=== PATIENT | female | born 1940 | race Caucasian/White ===

== ENCOUNTER 2017-06-11 07:06 | Day surgery (SDC) | payer MEDICARE, BC ==
[~2017-06-11 07:06] MED LIST: Lactated Ringers 1,000 ML IV SCH; Lidocaine 1% 4 ML ONE; Lidocaine 1%/Sod Bicarbonate in NS 8.4% 1 ML Syringe PRN; Propofol 200 MG/20 ML SDV ONE; Sodium Chloride 0.9% 10 ML Syringe FLUSH PRN
--- NOTE | 2017-06-11 07:55 | PCM.PREANE ---
Preanesthetic Assessment - Anesthesia/Transfusion/Family Hx Anesthesia History: Prior Anesthesia Without Reaction Family History of Anesthesia Reaction: No Transfusion History: No Prior Transfusion(s) - Review of Systems General: Weakness Pulmonary: No Symptoms Cardiovascular: No Symptoms Gastrointestinal: Difficulty Swallowing, Other (Burning in back of throat/mouth in the morning.) Neurological: No Symptoms Other: Reports: Thyroid Problems, Sinus Problem (Post nasal drip), Anxiety - Physical Assessment NPO Status Date: 06/10/17 NPO Status Time: 21:00 Pulse: 71 O2 Sat by Pulse Oximetry: 94 Respiratory Rate: 16 Blood Pressure: 143/79 Temperature: 36.9 C Height: 1.7 m Weight: 84.368 kg ASA Class: 2 Mental Status: Alert & Oriented x3 Airway Class: Mallampati = 2 Dentition: Reports: Normal Dentition Thyro-Mental Finger Breadths: 3 Mouth Opening Finger Breadths: 3 ROM/Head Extension: Full Lungs: Clear to Auscultation, Normal Respiratory Effort Cardiovascular: Regular Rate, Regular Rhythm - Allergies Allergies/Adverse Reactions: Allergies Allergy/AdvReac Type Severity Reaction Status Date / Time amoxicillin [From Amoxil] Allergy Cannot Verified 06/10/17 16:41 Remember atorvastatin [From Lipitor] Allergy Cannot Verified 06/10/17 16:41 Remember bacitracin Allergy Cannot Verified 06/10/17 16:41 [From Neosporin Remember ([id number])] chlorhexidine Allergy Cannot Verified 06/10/17 16:41 Remember codeine Allergy Itching Verified 06/10/17 16:41 hydralazine Allergy Cannot Verified 06/10/17 16:41 Remember hydrocodone Allergy Cannot Verified 06/10/17 16:41 Remember neomycin Allergy Cannot Verified 06/10/17 16:41 [From Neosporin Remember ([id number])] Penicillins Allergy Itching Verified 06/10/17 16:41 polymyxin B Allergy Cannot Verified 06/10/17 16:41 [From Neosporin Remember ([id number])] rosuvastatin [From Crestor] Allergy Cannot Verified 06/10/17 16:41 Remember Tetracyclines Allergy Cannot Verified 06/10/17 16:41 Remember tramadol Allergy Itching Verified 06/10/17 16:41 zolpidem [From Ambien] Allergy Cannot Verified 06/10/17 16:41 Remember erythromycin base AdvReac Hypertensio Verified 06/10/17 16:41 [Erythromycin Base] n - Acknowledgements Anesthesia Type Planned: MAC Pt an Appropriate Candidate for the Planned Anesthesia: Yes Alternatives and Risks of Anesthesia Discussed w Pt/Guardian: Yes Pt/Guardian Understands and Agrees with Anesthesia Plan: Yes PreAnesthesia Questionnaire - Past Health History Medical/Surgical History: Denies Medical/Surgical History HEENT History: Reports: Allergic Rhinitis, Cataract, Impaired Vision, Sinusitis , Other (See Below) Other HEENT History: burning mouth syndrome, wears glasses Cardiovascular History: Reports: Other (See Below) Other Cardiovascular History: bronchitis Respiratory History: Reports: Bronchitis, Recurrent Gastrointestinal History: Reports: GERD, Irritable Bowel Syndrome 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 Musculoskeletal History: Reports: Arthritis, Other (See Below) Other Musculoskeletal History: muscle pain, weakness, knee pain Neurological History: Reports: None Psychiatric History: Reports: Other (See Below) Other Psychiatric History: anxiety, insomnia Endocrine/Metabolic History: Reports: Hypothyroidism, Vitamin D Deficiency Hematologic History: Reports: Anemia, Other (See Below) Other Hematologic History: bleeding disorder, hypercalcemia Immunologic History: Reports: None Oncologic (Cancer) History: Reports: None Dermatologic History: Reports: Other (See Below) Other Dermatologic History: open wound of lower extremity, seborrheic keratosis , onchomycosis of toenail, skin lesions, skin tag - Past Surgical History Head Surgeries/Procedures: Reports: None HEENT Surgical History: Reports: Cataract Surgery, Tonsillectomy Respiratory Surgical History: Reports: None GI Surgical History: Reports: Appendectomy, Colonoscopy Female Surgical History: Reports: Breast Biopsy, Hysterectomy Male Surgical History: Reports: None Endocrine Surgical History: Reports: None Neurological Surgical History: Reports: None Musculoskeletal Surgical History: Reports: Other (See Below) Other Musculoskeletal Surgeries/Procedures:: foot surgery Oncologic Surgical History: Reports: None - SUBSTANCE USE Smoking Status *Q: Never Smoker Second Hand Smoke Exposure: No Recreational Drug Use History: No - HOME MEDS Home Medications: Home Meds Hydrochlorothiazide 12.5 mg PO ASDIRECTED PRN 10/10/15 [History] Levothyroxine 75 mcg PO DAILY 10/10/15 [History] Ascorbic Acid [Vitamin C] 1,000 mg PO DAILY 06/10/17 [History] Aspirin 81 mg PO DAILY 06/10/17 [History] Cholecalciferol (Vitamin D3) [Vitamin D3] 5,000 unit PO DAILY 06/10/17 [History] Clotrimazole [Mycelex] 10 mg PO 5XDAY 06/10/17 [History] Fish Oil/[place]-3 Fatty Acids [Fish Oil 1,000 MG] 1 gm PO DAILY 06/10/17 [History ] Loratadine/Pseudoephedrine [Claritin-D 24 Hour Tablet] 1 tab PO DAILY PRN [History] Lutein 20 mg PO DAILY 06/10/17 [History] Pantoprazole Sodium [Protonix] 40 mg PO DAILY 06/10/17 [History] Ubidecarenone [Coq-10] 100 mg PO DAILY 06/10/17 [History] Vitamin B Complex 1 cap PO DAILY 06/10/17 [History] - CURRENT (IN HOUSE) MEDS Current Meds: Current Medications Lactated Ringer's (Ringers, Lactated) 1,000 mls @ 125 mls/hr IV ASDIRECTED WENDI Stop: 06/11/17 23:00 Lidocaine/Sodium Bicarbonate (Buffered Lidocaine 1% In Ns 8.4%) 0.25 ml .XX ONETIME PRN PRN Reason: Prior to IV Start Stop: 06/11/17 18:00 Sodium Chloride (Saline Flush) 10 ml FLUSH ASDIRECTED PRN PRN Reason: Keep Vein Open Stop: 06/11/17 18:00 Discontinued Medications Lidocaine HCl (Xylocaine-Mpf 1%) Confirm Administered Dose 4 mls @ as directed .ROUTE .STK-MED ONE Stop: 06/11/17 07:00 Propofol (Diprivan 20 Ml) Confirm Administered Dose 200 mg .ROUTE .STK-MED ONE Stop: 06/11/17 07:00
--- NOTE | 2017-06-11 08:48 | PCM48HPAN ---
Post Anesthesia Note - EVALUATION WITHIN 48HRS OF ANESTHETIC Vital Signs in Normal Range: Yes Patient Participated in Evaluation: Yes Respiratory Function Stable: Yes Airway Patent: Yes Cardiovascular Function Stable: Yes Hydration Status Stable: Yes Pain Control Satisfactory: Yes Nausea and Vomiting Control Satisfactory: Yes Mental Status Recovered: Yes - COMMENTS/OBSERVATIONS Free Text/Narrative:: pt awake, VSS, no c/o
--- NOTE | 2017-06-11 08:50 | PCM.OPNOTE ---
- General Post-Op/Procedure Note Date of Surgery/Procedure: 06/11/17 Operative Procedure(s): Esophagogastroduodenoscopy with proximal and distal esophageal biopsies along with antral biopsies Findings: Mild antritis otherwise unremarkable examination. No esophageal strictures webs or rings were seen. Pre Op Diagnosis: Chronic sore throat with occasional dysphagia Post-Op Diagnosis: Mild antritis Anesthesia Technique: MAC, Moderate Sedation Primary Surgeon: Maurice Weber Pathology: 1. Proximal and distal esophageal biopsies 2. Mild antritis Complications: None Condition: Good Free Text/Narrative:: After adequate IV sedation and analgesia was obtained with monitoring the patient was placed on her left side. Through a bite block a lubricated upper endoscope was inserted into the esophagus and advanced under direct vision to the stomach. Additional air was given here. The scope was advanced towards the antrum where there were mild focal areas of erythema with no erosions or ulcerations. The scope was introduced into the duodenum and the first part was endoscopically normal. There were no ulcers or inflammation in this area. I took 2 biopsies of the antral areas of erythema for histologic review. The retroflexed view revealed no hiatal hernias. The fundus and cardiac regions had some minor scope trauma but were otherwise unremarkable. The rugal folds were normal. The gastric motility was grossly normal. I then withdrew the scope to the GE junction which was unremarkable. 2 random biopsies were taken of this area. There were no acute or chronic inflammatory changes seen here. The body of the esophagus was unremarkable. I took 2 biopsies within the proximal third of the esophagus given her history of dysphagia. The scope was then withdrawn to the hypopharyngeal area. The epiglottis was normal. The vocal cords were normal. Photographs were taken for the patient and for the record.
[2017-06-11 10:20] VITALS: BP 124/76
== END 2017-06-11 09:27 | disposition home or self-care (01) ==
LOC: JD.SDS 07:06
PROVIDERS: ATTEND Surgery
DX: K29.50 Unspecified chronic gastritis without bleeding (principal); K21.0 Gastro-esophageal reflux disease with esophagitis; E03.9 Hypothyroidism, unspecified; F41.9 Anxiety disorder, unspecified; E78.2 Mixed hyperlipidemia; E83.52 Hypercalcemia; Z88.0 Allergy status to penicillin; Z88.1 Allergy status to other antibiotic agents; Z88.8 Allergy status to other drugs, medicaments and biological substances; Z79.82 Long term (current) use of aspirin; Z79.899 Other long term (current) drug therapy; Z91.09 Other allergy status, other than to drugs and biological substances; Z90.49 Acquired absence of other specified parts of digestive tract; Z98.890 Other specified postprocedural states; Z90.710 Acquired absence of both cervix and uterus; Z72.0 Tobacco use
CPT/HCPCS: 43239; J7120; 00740; 88305; J2704

== ENCOUNTER 2020-02-21 06:56 | Inpatient (IN) | payer MEDICARE, BC ==
[~2020-02-21 06:56] MED LIST changes: +Cyclobenzaprine 10 MG Tab PO PRN; +Dexamethasone 4 MG/ML 5 ML MDV ONE; +EPINEPHrine 1 MG/ML SDV ONE; +Ketorolac 15 MG/ML SDV ONE; +Lidocaine 1%/Sod Bicarbonate in NS 8.4% 1 ML Syringe IDERM PRN; -Lidocaine 1%/Sod Bicarbonate in NS 8.4% 1 ML Syringe PRN; +Midazolam 1 MG/ML 2 ML SDV ONE; +Ondansetron 4 MG/2 ML SDV ONE; +Ropivacaine 0.5% 5 MG/ML 30 ML SDV ONE; +ceFAZolin 1 GM Vial ONE; +fentaNYL 100 MCG/2 ML SDV ONE
[2020-02-21] MEDS ORDERED: Ondansetron 4 MG/2 ML SDV IVPUSH PRN ×2 (06:57→08:35)
[2020-02-21] MEDS ORDERED: Bisacodyl 5 MG Tab PO PRN (06:57)
[2020-02-21] MEDS ORDERED: Naloxone 0.4 MG/ML SDV IVPUSH PRN (06:57)
[2020-02-21] MEDS ORDERED: HYDROmorphone 0.5 MG/0.5 ML Syringe IVPUSH PRN (06:57)
[2020-02-21] MEDS ORDERED: Magnesium Hydroxide 400 MG/5 ML Susp 30 ML Cup PO PRN (06:57)
[2020-02-21] MEDS ORDERED: Sennosides 8.6 MG Tab PO PRN (06:57)
[2020-02-21] MEDS ORDERED: ceFAZolin 1 GM Vial ONE (07:07)
[2020-02-21] MEDS ORDERED: Bupivacaine 0.25% 10 ML SDV ONE (07:07)
[2020-02-21] MEDS ORDERED: Iodine/Sodium Iodide 2% Tincture 30 ML Bottle ONE (07:07)
[2020-02-21] MEDS ORDERED: Vancomycin 1 GM SDV ONE (07:07)
[2020-02-21] MEDS ORDERED: Scopolamine 1.5 MG Transdermal Patch TOP ONE (07:33)
[2020-02-21] MEDS ORDERED: Morphine Sulfate 8 MG, EPINEPHrine 0.3 MG, Cefuroxime 750 MG, Ketorolac 30 MG, Sodium C... PRN ×5 (08:00)
--- NOTE | 2020-02-21 08:31 | PCM.PREANE ---
Preanesthetic Assessment - Procedure Proposed Procedure: Left Total Knee Arthroplasty - Anesthesia/Transfusion/Family Hx Anesthesia History: Prior Anesthesia Reaction Type of Anesthesia Reaction: Excessive Nausea/Vomiting Family History of Anesthesia Reaction: No Transfusion History: No Prior Transfusion(s) - Review of Systems General: No Symptoms Pulmonary: No Symptoms Cardiovascular: No Symptoms (Recent heart cath mild CAD, 30% lesion noted. Started BetaBlocker per cardiology, cleared for surgery. Edema to legs 2 + stable, chronic. ) Gastrointestinal: No Symptoms, Difficulty Swallowing (Due to thyroid goiter. Monitoring. EGD recently was good. ) Neurological: No Symptoms Other: Reports: Anxiety (Anxious today. Hypertension noted at 162/93 normal BP is 120's systolic. Anxiolytic requested. ) - Physical Assessment NPO Status Date: 02/20/20 NPO Status Time: 23:45 Vital Signs: Last Vital Signs Temp 36.2 C 02/21/20 07:00 Pulse 78 02/21/20 07:00 Resp 18 02/21/20 07:00 BP 162/93 H 02/21/20 07:00 Pulse Ox 97 02/21/20 07:00 Height: 1.7 m Weight: 86.183 kg ASA Class: 3 Mental Status: Alert & Oriented x3 Airway Class: Mallampati = 2 Dentition: Reports: Normal Dentition Thyro-Mental Finger Breadths: 2 Mouth Opening Finger Breadths: 3 ROM/Head Extension: Full Lungs: Clear to Auscultation, Normal Respiratory Effort Cardiovascular: Regular Rate, Regular Rhythm - Lab Values: Laboratory Last Values COVID-19 PCR Not detected (NOT DETECT) 02/17/20 08:30 - Allergies Allergies/Adverse Reactions: Allergies Allergy/AdvReac Type Severity Reaction Status Date / Time amoxicillin [From Amoxil] Allergy Cannot Verified 02/21/20 07:12 Remember atorvastatin [From Lipitor] Allergy Cannot Verified 02/21/20 07:12 Remember bacitracin Allergy Cannot Verified 02/21/20 07:12 [From Neosporin Remember ([id number])] chlorhexidine Allergy Cannot Verified 02/21/20 07:12 Remember codeine Allergy Itching Verified 02/21/20 07:12 hydralazine Allergy Cannot Verified 02/21/20 07:12 Remember hydrocodone Allergy Cannot Verified 02/21/20 07:12 Remember neomycin Allergy Cannot Verified 02/21/20 07:12 [From Neosporin Remember ([id number])] Penicillins Allergy Itching Verified 02/21/20 07:12 polymyxin B Allergy Cannot Verified 02/21/20 07:12 [From Neosporin Remember ([id number])] rosuvastatin [From Crestor] Allergy Cannot Verified 02/21/20 07:12 Remember Tetracyclines Allergy Cannot Verified 02/21/20 07:12 Remember tramadol Allergy Itching Verified 02/21/20 07:12 zolpidem [From Ambien] Allergy Cannot Verified 02/21/20 07:12 Remember erythromycin base AdvReac Hypertensio Verified 02/21/20 07:12 [Erythromycin Base] n - Anesthesia Plan Pre-Op Medication Ordered: Anxiolytic Beta Debbie: Metoprolol Med Last Dose Date: 02/21/20 Med Last Dose Time: 04:00 - Acknowledgements Anesthesia Type Planned: Spinal Pt an Appropriate Candidate for the Planned Anesthesia: Yes Alternatives and Risks of Anesthesia Discussed w Pt/Guardian: Yes Pt/Guardian Understands and Agrees with Anesthesia Plan: Yes PreAnesthesia Questionnaire - Past Health History Medical/Surgical History: Denies Medical/Surgical History HEENT History: Reports: Allergic Rhinitis, Cataract, Impaired Vision, Sinusitis, Other (See Below) Other HEENT History: burning mouth syndrome, wears glasses Cardiovascular History: Reports: High Cholesterol, Hypertension, Other (See Below) Respiratory History: Reports: Bronchitis, Recurrent Gastrointestinal History: Reports: GERD, Irritable Bowel Syndrome Genitourinary History: Reports: UTI, Recurrent 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 Musculoskeletal History: Reports: Arthritis, Other (See Below) Other Musculoskeletal History: muscle pain, weakness, knee pain Neurological History: Reports: None, Other (See Below) Other Neuro History: transient cerbralischemia Psychiatric History: Reports: Anxiety, Other (See Below) Other Psychiatric History: anxiety, insomnia Endocrine/Metabolic History: Reports: Hypothyroidism, Vitamin D Deficiency Hematologic History: Reports: Anemia, Bleeding Disorder, Other (See Below) Immunologic History: Reports: None Oncologic (Cancer) History: Reports: None Dermatologic History: Reports: Seborrheic Dermatitis, Other (See Below) Other Dermatologic History: open wound of lower extremity, seborrheic keratosis, onchomycosis of toenail, skin lesions, skin tag - Past Surgical History Head Surgeries/Procedures: Reports: None HEENT Surgical History: Reports: Cataract Surgery, Tonsillectomy Cardiovascular Surgical History: Reports: Cardiac Ablation Other Cardiovascular Surgeries/Procedures: abnormal stress test Respiratory Surgical History: Reports: None GI Surgical History: Reports: Appendectomy, Colonoscopy, EGD Female Surgical History: Reports: Breast Biopsy, Hysterectomy Male Surgical History: Reports: None Endocrine Surgical History: Reports: None Neurological Surgical History: Reports: None Musculoskeletal Surgical History: Reports: Knee Replacement, Other (See Below) Other Musculoskeletal Surgeries/Procedures:: foot surgery Oncologic Surgical History: Reports: None - SUBSTANCE USE Smoking Status *Q: Never Smoker Recreational Drug Use History: No - HOME MEDS Home Medications: Home Meds Aspirin 81 mg PO DAILY 02/18/20 [History] Cholecalciferol (Vitamin D3) [Vitamin D3] 5,000 unit PO DAILY 02/18/20 [History] Ipratropium [Atrovent 0.06% Nasal [place]] 1 spray NASBOTH TID PRN 02/18/20 [Hi story] L.acidoph,Paracasei, B.lactis [Probiotic] 1 cap PO DAILY 02/18/20 [History] Levothyroxine 75 mcg PO DAILY 02/18/20 [History] Metoprolol Succinate 12.5 mg PO DAILY 02/18/20 [History] Pitavastatin Calcium [Livalo] 1 mg PO DAILY 02/18/20 [History] Ubidecarenone [Co Q-10] 100 mg PO DAILY 02/18/20 [History] hydroCHLOROthiazide [Hydrochlorothiazide] 25 mg PO DAILY 02/18/20 [History] - CURRENT (IN HOUSE) MEDS Current Meds: Current Medications Apixaban (Eliquis) 2.5 mg PO BID ONE Stop: 02/22/20 09:00 Apixaban (Eliquis) 2.5 mg PO BID WENDI Bisacodyl (Dulcolax) 5 mg PO DAILY PRN PRN Reason: Constipation Morphine Sulfate 8 mg/Epinephrine HCl 0.3 mg/Cefuroxime Sodium 750 mg/Ketorolac Tromethamine 30 mg/Sodium Chloride 7.9 ml 0 mg .XX ASDIRECTED PRN PRN Reason: Pain Cyclobenzaprine HCl (Flexeril) 5 mg PO TID PRN PRN Reason: Spasms Docusate Sodium (Colace) 100 mg PO BID WENDI Famotidine (Pepcid) 20 mg PO Q12H WENDI Hydromorphone HCl (Dilaudid) 0.2 mg IVPUSH Q2H PRN PRN Reason: Pain (moderate 4-6) Lactated Ringer's (Ringers, Lactated) 1,000 mls @ 125 mls/hr IV ASDIRECTED [facility] Stop: 02/21/20 23:00 Last Admin: 02/21/20 07:20 Dose: 125 mls/hr Documented by: Cefazolin Sodium/Dextrose 2 gm (/ Premix) 50 mls @ 100 mls/hr IV Q8H [facility] Stop: 02/21/20 23:29 Ketorolac Tromethamine (Toradol) 15 mg IVPUSH Q6H PRN PRN Reason: Pain Lidocaine/Sodium Bicarbonate (Buffered Lidocaine 1% In Ns 8.4%) 0.25 ml IDERM ONETIME PRN PRN Reason: Prior to IV Start Stop: 02/21/20 18:00 Last Admin: 02/21/20 07:40 Dose: 0.25 ml Documented by: Magnesium Hydroxide (Milk Of Magnesia) 30 ml PO BID PRN PRN Reason: Constipation Naloxone HCl (Narcan) 0.1 mg IVPUSH Q5M PRN PRN Reason: Oversedation Ondansetron HCl (Zofran) 4 mg IVPUSH Q6H PRN PRN Reason: Nausea/Vomiting Senna (Senna) 8.6 mg PO BID PRN PRN Reason: Constipation Sodium Chloride (Saline Flush) 10 ml FLUSH ASDIRECTED PRN PRN Reason: Keep Vein Open Stop: 02/21/20 18:00 Tapentadol (Nucynta) 50 - 100 mg PO Q6H PRN PRN Reason: Pain Discontinued Medications Bupivacaine HCl (Sensorcaine-Mpf 0.25%) Confirm Administered Dose 30 ml .ROUTE .STK-MED ONE Stop: 02/21/20 07:08 Cefazolin Sodium (Ancef) Confirm Administered Dose 2 gm .ROUTE .STK-MED ONE Stop: 02/21/20 06:43 Cefazolin Sodium (Ancef) Confirm Administered Dose 2 gm .ROUTE .STK-MED ONE Stop: 02/21/20 07:08 Dexamethasone (Dexamethasone) Confirm Administered Dose 20 mg .ROUTE .STK-MED ONE Stop: 02/21/20 06:43 Epinephrine HCl (Adrenalin) Confirm Administered Dose 1 mg .ROUTE .STK-MED ONE Stop: 02/21/20 06:56 Fentanyl (Sublimaze) Confirm Administered Dose 100 mcg .ROUTE .STK-MED ONE Stop: 02/21/20 06:42 Lidocaine HCl (Xylocaine-Mpf 1%) Confirm Administered Dose 4 mls @ as directed .ROUTE .STK-MED ONE Stop: 02/21/20 06:42 Iodine (Iodine 2% Mild Tincture) Confirm Administered Dose 30 ml .ROUTE .STK-MED ONE Stop: 02/21/20 07:08 Ketorolac Tromethamine (Toradol) Confirm Administered Dose 15 mg .ROUTE .STK-MED ONE Stop: 02/21/20 06:43 Midazolam HCl (Versed 1 Mg/Ml) Confirm Administered Dose 2 mg .ROUTE .STK-MED ONE Stop: 02/21/20 06:42 Ondansetron HCl (Zofran) Confirm Administered Dose 4 mg .ROUTE .STK-MED ONE Stop: 02/21/20 06:43 Propofol (Diprivan 20 Ml) Confirm Administered Dose 600 mg .ROUTE .STK-MED ONE Stop: 02/21/20 06:42 Ropivacaine (Naropin 0.5%) Confirm Administered Dose 30 ml .ROUTE .STK-MED ONE Stop: 02/21/20 06:57 Scopolamine (Transderm-Scop) 1.5 mg TOP ONETIME ONE Stop: 02/21/20 07:34 Last Admin: 02/21/20 07:43 Dose: 1.5 mg Documented by: Tranexamic Acid (Cyklokapron) Confirm Administered Dose 1,000 mg .ROUTE .STK-MED ONE Stop: 02/21/20 07:08 Vancomycin HCl (Vancomycin) Confirm Administered Dose 1 gm .ROUTE .STK-MED ONE Stop: 02/21/20 07:08
[2020-02-21] MEDS ORDERED: fentaNYL 100 MCG/2 ML SDV IVPUSH PRN (08:35)
[2020-02-21] MEDS ORDERED: Lactated Ringers 1,000 ML ONE (08:42)
--- NOTE | 2020-02-21 09:48 | PCM.POSTAN ---
POST ANESTHESIA ASSESSMENT - MENTAL STATUS Mental Status: Alert, Oriented - VITAL SIGNS Vital Signs: Last Vital Signs Temp 36.2 C 02/21/20 07:00 Pulse 78 02/21/20 07:00 Resp 18 02/21/20 07:00 BP 162/93 H 02/21/20 07:00 Pulse Ox 97 02/21/20 07:00 0941 93/49 73 19 100% - RESPIRATORY Respiratory Status: Respiratory Rate WNL, Airway Patent, O2 Saturation Stable, Supplemental Oxygen - CARDIOVASCULAR CV Status: Pulse Rate WNL, Blood Pressure Stable - GASTROINTESTINAL GI Status: No Symptoms - PAIN Pain Score: 0 - POST OP HYDRATION Hydration Status: Adequate & Stable
--- NOTE | 2020-02-21 10:13 | PCM.SN.2 ---
- Free Text/Narrative Note: Left selective femoral nerve block at the adductor canal for post-procedure pain control under US guidance requested by Dr. Gilmore. Time Out: 954 Start: 957 End: 1000 Chart reviewed. Consent signed. Questions answered. Appropriate monitors applied. Time out performed. Left mid-shaft femur identified with ultrasound, scanning medially of femur, the femoral artery in the adductor canal visualized, and the femoral nerve located laterally to the artery. The skin was prepped lateral to the ultrasound probe with chlorahexadine times two. The 21ga 4 insulated block needle was inserted under direct ultrasound guidance into the adductor canal. 20mL of 0.5% ropivacaine with 1:200,000 epinephrine was injected circumferentially around the nerve with intermittent negative aspiration noted. Patient tolerated the procedure well. Sterile technique noted along with sterile gloves, mask, and sterile probe cover. See picture on progress note and vital signs on nurses notes. Block completed in PACU. Lu Chaudhry CRNA
--- NOTE | 2020-02-21 11:40 | CR ---
Left knee: Standing AP and lateral views of the left knee were obtained. Comparison: No prior left knee study. Knee prosthesis is seen. Components are aligned. Underlying bony structures are intact. Soft tissue air is noted from the surgical procedure. Impression: 1. Satisfactory postoperative radiographic appearance recently placed left knee prosthesis. Diagnostic code #2 This report was dictated in MDT
[2020-02-21] MEDS: HYDROmorphone 0.5 MG/0.5 ML Syringe IVPUSH PRN ×2 (12:03→13:02)
[2020-02-21] MEDS ORDERED: Albuterol/Ipratropium 3.0-0.5 MG/3 ML Neb Soln NEB PRN (12:37)
[2020-02-21] MEDS ORDERED: hydrALAZINE 20 MG/ML SDV IVPUSH PRN (12:38)
--- NOTE | 2020-02-21 12:50 | PCM.CONS ---
H&P History of Present Illness - General Date of Service: 02/21/20 Admit Problem/Dx: Admission Diagnosis/Problem Admission Diagnosis/Problem Osteoarthritis of knee Source of Information: Patient History Limitations: Reports: No Limitations - History of Present Illness Initial Comments - Free Text/Narative: Mrs. Macedo is a pleasant 79-year-old female, with past medical history significant for hypothyroidism, dyslipidemia, arthritis and hypertension patient was admitted today under orthopedic service for evaluation of osteoarthritis of left knee after patient failed conservative management. The patient reports significant history of osteoarthritis. Reported prior history of right total knee replacement. Stated she had been having pain involving her right extremity, tried conservative management without significant improvement was evaluated by orthopedic surgeon patient was deemed candidate for knee replacement. Today, the patient underwent uneventful left knee replacement was transferred back to the floor in stable condition. At time of my exam, patient reports modest pain but improved with current pain medication. Denied any obvious chest pain or palpitations. Vital signs relatively stable. Given the patient's comorbid conditions, hospitalist was consulted for management posy-op while patient is in-house. Onset of Symptoms: Reports: Other (Elective surgery) Left Knee Pain Score (Numeric/FACES): 9 - Related Data Allergies/Adverse Reactions: Allergies Allergy/AdvReac Type Severity Reaction Status Date / Time amoxicillin [From Amoxil] Allergy Cannot Verified 02/21/20 07:12 Remember atorvastatin [From Lipitor] Allergy Cannot Verified 02/21/20 07:12 Remember bacitracin Allergy Cannot Verified 02/21/20 07:12 [From Neosporin Remember ([id number])] chlorhexidine Allergy Cannot Verified 02/21/20 07:12 Remember codeine Allergy Itching Verified 02/21/20 07:12 hydralazine Allergy Cannot Verified 02/21/20 07:12 Remember hydrocodone Allergy Cannot Verified 02/21/20 07:12 Remember neomycin Allergy Cannot Verified 02/21/20 07:12 [From Neosporin Remember ([id number])] Penicillins Allergy Itching Verified 02/21/20 07:12 polymyxin B Allergy Cannot Verified 02/21/20 07:12 [From Neosporin Remember ([id number])] rosuvastatin [From Crestor] Allergy Cannot Verified 02/21/20 07:12 Remember Tetracyclines Allergy Cannot Verified 02/21/20 07:12 Remember tramadol Allergy Itching Verified 02/21/20 07:12 zolpidem [From Ambien] Allergy Cannot Verified 02/21/20 07:12 Remember erythromycin base AdvReac Hypertensio Verified 02/21/20 07:12 [Erythromycin Base] n Home Medications: Home Meds Aspirin 81 mg PO DAILY 02/18/20 [History] Cholecalciferol (Vitamin D3) [Vitamin D3] 5,000 unit PO DAILY 02/18/20 [History] Ipratropium [Atrovent 0.06% Nasal [place]] 1 spray NASBOTH TID PRN 02/18/20 [History] L.acidoph,Paracasei, B.lactis [Probiotic] 1 cap PO DAILY 02/18/20 [History] Levothyroxine 75 mcg PO DAILY 02/18/20 [History] Metoprolol Succinate 12.5 mg PO DAILY 02/18/20 [History] Pitavastatin Calcium [Livalo] 1 mg PO DAILY 02/18/20 [History] Ubidecarenone [Co Q-10] 100 mg PO DAILY 02/18/20 [History] hydroCHLOROthiazide [Hydrochlorothiazide] 25 mg PO DAILY 02/18/20 [History] Apixaban [Eliquis] 2.5 mg PO BID #60 tablet 02/22/20 [Rx] Cyclobenzaprine [Flexeril] 5 mg PO BID PRN #20 tablet 02/22/20 [Rx] Docusate Sodium [Colace] 100 mg PO BID cap 02/22/20 [Rx] Magnesium Hydroxide [Milk of Magnesia] 30 ml PO BID PRN cup 02/22/20 [Rx] Sennosides [Evac-U-Gen] 8.6 mg PO BEDTIME #30 tablet 02/22/20 [Rx] Sennosides [Senna] 8.6 mg PO BID PRN tablet 02/22/20 [Rx] Tapentadol [Nucynta] 50 - 100 mg PO Q6H PRN #60 tablet 02/22/20 [Rx] bisacodyL [Dulcolax] 5 mg PO DAILY PRN tablet 02/22/20 [Rx] Past Medical History - Past Health History Medical/Surgical History: Denies Medical/Surgical History HEENT History: Reports: Allergic Rhinitis, Cataract, Impaired Vision, Sinusitis, Other (See Below) Other HEENT History: burning mouth syndrome, wears glasses Cardiovascular History: Reports: High Cholesterol, Hypertension, Other (See Below) Respiratory History: Reports: Bronchitis, Recurrent Other Respiratory History: Hx of pneumonia Gastrointestinal History: Reports: GERD, Irritable Bowel Syndrome Genitourinary History: Reports: UTI, Recurrent Other Genitourinary History: UTI x3 in last 2 months [employer] History: Reports: None Musculoskeletal History: Reports: Arthritis, Other (See Below) Other Musculoskeletal History: muscle pain, weakness, knee pain Neurological History: Reports: None, Other (See Below) Other Neuro History: transient cerbralischemia Psychiatric History: Reports: Anxiety, Other (See Below) Other Psychiatric History: anxiety, insomnia Endocrine/Metabolic History: Reports: Hypothyroidism, Vitamin D Deficiency Hematologic History: Reports: Anemia, Bleeding Disorder, Other (See Below) Immunologic History: Reports: None Oncologic (Cancer) History: Reports: None Dermatologic History: Reports: Seborrheic Dermatitis, Other (See Below) Other Dermatologic History: open wound of lower extremity, seborrheic keratosis, onchomycosis of toenail, skin lesions, skin tag - Infectious Disease History Infectious Disease History: Reports: Chicken Pox, Influenza, Measles - Past Surgical History Head Surgeries/Procedures: Reports: None HEENT Surgical History: Reports: Cataract Surgery, Tonsillectomy Cardiovascular Surgical History: Reports: Cardiac Ablation Other Cardiovascular Surgeries/Procedures: abnormal stress test Respiratory Surgical History: Reports: None GI Surgical History: Reports: Appendectomy, Colonoscopy, EGD Female Surgical History: Reports: Breast Biopsy, Hysterectomy Male Surgical History: Reports: None Endocrine Surgical History: Reports: None Neurological Surgical History: Reports: None Musculoskeletal Surgical History: Reports: Knee Replacement, Other (See Below) Other Musculoskeletal Surgeries/Procedures:: foot surgery Oncologic Surgical History: Reports: None Social & Family History - Family History HEENT: Reports: Cataract Other HEENT Family History: brothers and sisters Cardiac: Reports: Angina, CT Other Cardiac Family History: Twin sister had CT : Reports: UTI, Recurrent Other Family History: Daugher, older sister Musculoskeletal: Reports: Other (See Below) Other Musculoskeletal Family History: sister, scoliosis - Tobacco Use Smoking Status *Q: Never Smoker Used Tobacco, but Quit: No - Caffeine Use Caffeine Use: Reports: None - Alcohol Use Days Per Week of Alcohol Use: 1 Number of Drinks Per Day: 0 Total Drinks Per Week: 0 - Recreational Drug Use Recreational Drug Use: No Drug Use in Last 12 Months: No H&P Review of Systems - Review of Systems: Review Of Systems: See Below General: Reports: No Symptoms HEENT: Reports: No Symptoms Pulmonary: Reports: No Symptoms Cardiovascular: Reports: No Symptoms Gastrointestinal: Reports: No Symptoms Genitourinary: Reports: No Symptoms Musculoskeletal: Reports: Other (reports pain on right knee.) Psychiatric: Reports: No Symptoms Hematologic/Lymphatic: Reports: No Symptoms Immunologic: Reports: No Symptoms Exam - Exam Exam: See Below - Vital Signs Vital Signs: Last Vital Signs Temp 97.8 F 02/21/20 10:50 Pulse 95 02/21/20 12:00 Resp 18 02/21/20 12:00 BP 132/65 02/21/20 12:00 Pulse Ox 93 L 02/21/20 12:00 Weight: 190 lb - Exam General: Alert, Oriented HEENT: Conjunctiva Clear, EACs Clear, EOMI, Hearing Intact, Mucosa Moist & [place] Neck: Supple, Trachea Midline Lungs: Clear to Auscultation, Normal Respiratory Effort Cardiovascular: Regular Rate, Regular Rhythm GI/Abdominal Exam: Normal Bowel Sounds, Soft, Non-Tender Extremities: Normal Inspection, No Pedal Edema, Other (right knee covered after surgery, but sensation appears to be intact at time of my exam.) Neuro Extensive - Mental Status: Alert, Oriented x3, Normal Mood/Affect, Normal Cognition Psychiatric: Alert, Normal Affect, Normal Mood - Patient Data Result Diagrams: 02/22/20 05:00 02/22/20 05:08 Sepsis Event Note - Evaluation Sepsis Screening Result: No Definite Risk - Focused Exam Vital Signs: Vital Signs Temp Pulse Resp BP BP Pulse Ox Pulse Ox 02/21/20 12:00 95 18 132/65 93 L 02/21/20 10:50 97.8 F 77 18 117/74 92 L 02/21/20 10:25 98.3 F 22 H 110/54 L 96 02/21/20 10:00 18 106/50 L 96 100 02/21/20 09:50 21 H 96/54 L 99 100 02/21/20 09:41 97.5 F 19 93/49 L 100 100 02/21/20 07:00 97.1 F 78 18 162/93 H 97 02/21/20 06:57 97.7 F 76 16 112/60 96 Pulse Ox 02/21/20 12:00 02/21/20 10:50 02/21/20 10:25 96 02/21/20 10:00 02/21/20 09:50 02/21/20 09:41 02/21/20 07:00 02/21/20 06:57 Date Exam was Performed: 02/21/20 Time Exam was Performed: 13:38 Consult PN Assessment/Plan Procedures: Procedures ASPIR/INJ THYROID CYST (11/03/13) ASSAY OF CALCIUM (07/18/14) ASSAY OF CK (CPK) (09/21/15) ASSAY OF FREE THYROXINE (01/10/20) ASSAY OF MAGNESIUM (03/03/18) ASSAY OF PARATHORMONE (08/21/18) ASSAY OF PREALBUMIN (02/14/20) ASSAY OF SERUM ALBUMIN (02/14/20) ASSAY THYROID STIM HORMONE (01/10/20) BREAST TOMOSYNTHESIS BI (08/25/18) CARDIOVASCULAR STRESS TEST (01/13/20) CHEST X-RAY 2VW FRONTAL&LATL (04/19/16) COMP SCREEN MAMMOGRAM ADD-ON (08/23/14) COMPLETE CBC W/AUTO DIFF WBC (09/16/19) COMPREHEN METABOLIC PANEL (01/10/20) CT HEAD/BRAIN W/O DYE (10/10/15) CYTOPATH SMEAR OTHER SOURCE (11/03/13) DXA BONE DENSITY AXIAL (09/24/19) ECHO GUIDE FOR BIOPSY (11/03/13) EGD BIOPSY SINGLE/MULTIPLE (06/11/17) ELECTROCARDIOGRAM TRACING (10/10/15) ELECTROLYTE PANEL (10/25/15) EMERGENCY DEPT VISIT (10/10/15) EXTRACRANIAL BILAT STUDY (10/19/15) GLYCOSYLATED HEMOGLOBIN TEST (09/16/19) HT MUSCLE IMAGE SPECT MULT (01/13/20) LIPID PANEL (02/14/20) METABOLIC PANEL TOTAL CA (02/14/20) MICROBE SUSCEPTIBLE JOS (02/07/20) MR-STAPH DNA AMP PROBE (02/14/20) MRI JNT OF LWR EXTRE W/O DYE (03/30/15) PROTHROMBIN TIME (02/14/20) ROUTINE VENIPUNCTURE (10/10/15) SCR MAMMO BI INCL CAD (08/25/18) THROMBOPLASTIN TIME PARTIAL (02/14/20) TTE W/DOPPLER COMPLETE (10/19/15) URINALYSIS AUTO W/SCOPE (01/28/20) URINE BACTERIA CULTURE (02/07/20) URINE CULTURE/COLONY COUNT (02/14/20) US EXAM OF HEAD AND NECK (08/25/18) VITAMIN B-12 (10/25/15) VITAMIN D 25 HYDROXY (02/14/16) X-RAY EXAM CHEST 2 VIEWS (01/10/20) (1) Hypertension SNOMED Code(s): 29204859 Code(s): I10 - ESSENTIAL (PRIMARY) HYPERTENSION Current Visit: Yes (2) Dyslipidemia SNOMED Code(s): 628852369 Code(s): E78.5 - HYPERLIPIDEMIA, UNSPECIFIED Current Visit: Yes (3) Osteoarthritis of left knee SNOMED Code(s): 663354844921594 Code(s): M17.12 - UNILATERAL PRIMARY OSTEOARTHRITIS, LEFT KNEE Current Visit: Yes (4) Hypothyroidism SNOMED Code(s): 63299581 Code(s): E03.9 - HYPOTHYROIDISM, UNSPECIFIED Current Visit: Yes (5) History of recurrent UTI (urinary tract infection) SNOMED Code(s): 442522981 Code(s): Z87.440 - PERSONAL HISTORY OF URINARY (TRACT) INFECTIONS Current Visit: Yes Problem List Initiated/Reviewed/Updated: Yes Plan: Osteoarthritics of left knee status post left total knee replacement: Today postop day 0. Procedure went uneventfully, minimal blood loss reported plan will be to control the patient's pain, monitor patient's H&H, for any signs of infection. The patient to begin PT and OT. Encourage use of incentive spirometry History of recurrent Urinary tract infection: Patient has significant history of UTIs. On 02/07/2020, patient was recently found with E. coli fortunately pansensitive. Patient already received Ancef preop, will repeat UA, continue with Ancef x 3 doses as ordered by ortho. Additional antibiotics if signs of UTI on repeat UA. Hypothyroidism: We will continue home dose of TSH. Hypertension: Patient's blood pressure normotensive after surgery, will continue on home dose of metoprolol, hold patient's HCTZ for now, patient will be on hydralazine 10 mg p.o. assisted blood pressure again 180. Dyslipidemia: Continue home dose of agents. DVT prophylaxis: Patient already started on Eliquis 0.5 mg p.o. twice daily. Risk and benefits explained to the patient at this time patient is in agreement to continue with Eliquis. Nausea: Zofran 4 mg as needed nausea GI prophylaxis: Pepcid twice daily. Pain/fever: Acetaminophen 650 mg/mL pain/fever, continue pain medication started by Ortho. Constipation prophylaxis: Patient will continue on docusate twice daily. CODE STATUS: Full code Disposition patient will be in the hospital, hospitalist to manage patient's comorbid conditions, monitor for any signs of bleeding control pain. Physical therapy and Occupational Therapy
[2020-02-21] MEDS: ceFAZolin 2 GM in Premix Bag 1 BAG IV SCH ×2 (15:06→22:20)
[2020-02-21] MEDS: Ketorolac 15 MG/ML SDV IVPUSH PRN ×2 (15:06→22:55)
[2020-02-21] MEDS: Famotidine 20 MG Tab PO SCH (20:06)
[2020-02-21] MEDS: Docusate Sodium 100 MG Cap PO SCH (20:06)
[2020-02-22] MEDS ORDERED: Levothyroxine 75 MCG Tab PO SCH (06:00)
[2020-02-22] MEDS: ceFAZolin 2 GM in Premix Bag 1 BAG IV SCH (06:46)
[2020-02-22] MEDS ORDERED: Apixaban 2.5 MG Tab PO ONE (06:57)
--- NOTE | 2020-02-22 07:43 | PCM48HPAN ---
Post Anesthesia Note - EVALUATION WITHIN 48HRS OF ANESTHETIC Vital Signs in Normal Range: Yes Patient Participated in Evaluation: Yes Respiratory Function Stable: Yes Airway Patent: Yes Cardiovascular Function Stable: Yes Hydration Status Stable: Yes Pain Control Satisfactory: Yes Nausea and Vomiting Control Satisfactory: Yes Mental Status Recovered: Yes Vital Signs: Last Vital Signs Temp 36.1 C 02/22/20 07:20 Pulse 59 L 02/22/20 07:20 Resp 20 02/22/20 07:20 BP 127/76 02/22/20 07:20 Pulse Ox 93 L 02/22/20 07:20
--- NOTE | 2020-02-22 08:28 | PCM.SURGPN ---
- General Info Date of Service: 02/22/20 POD#: 1 Functional Status: Reports: Pain Controlled, Tolerating Diet, Ambulating, Urinating, Incentive Spirometry, Other (The pt states she is doing well.) - Patient Data Vitals - Most Recent: Last Vital Signs Temp 97.0 F 02/22/20 07:20 Pulse 59 L 02/22/20 07:20 Resp 20 02/22/20 07:20 BP 127/76 02/22/20 07:20 Pulse Ox 93 L 02/22/20 07:20 Weight - Most Recent: 200 lb 4.8 oz I&O - Last 24 Hours: Intake & Output 02/21/20 02/22/20 02/22/20 22:59 06:59 14:59 Intake Total 1230 250 Output Total 400 200 Balance 830 50 Lab Results Last 24 Hrs: Laboratory Results - last 24 hr 02/21/20 02/22/20 02/22/20 Range/Units 18:15 05:00 05:08 WBC 9.54 (3.98-10.04) K/mm3 RBC 3.82 L (3.98-5.22) M/mm3 Hgb 10.9 L D (11.2-15.7) gm/dl Hct 34.9 (34.1-44.9) % MCV 91.4 D (79.4-94.8) fl MCH 28.5 (25.6-32.2) pg MCHC 31.2 L (32.2-35.5) g/dl RDW Std Deviation 43.9 (36.4-46.3) fL Plt Count 180 L D (182-369) K/mm3 MPV 10.1 (9.4-12.3) fl Sodium 139 (136-145) mEq/L Potassium 4.6 (3.5-5.1) mEq/L Chloride 105 (98-107) mEq/L Carbon Dioxide 25 (21-32) mEq/L Anion Gap 13.6 (5-15) BUN 22 H (7-18) mg/dL Creatinine 1.0 (0.55-1.02) mg/dL Est Cr Clr Drug Dosing 44.36 mL/min Estimated GFR (MDRD) 53 (>60) mL/min BUN/Creatinine Ratio 22.0 H (14-18) Glucose 107 (83-115) mg/dL Calcium 8.7 (8.5-10.1) mg/dL Phosphorus 3.2 (2.6-4.7) mg/dL Total Bilirubin 0.3 (0.2-1.0) mg/dL AST 22 (15-37) U/L ALT 24 (14-59) U/L Alkaline Phosphatase 51 (46-116) U/L Total Protein 5.5 L (6.4-8.2) g/dl Albumin 2.9 L (3.4-5.0) g/dl Globulin 2.6 gm/dL Albumin/Globulin Ratio 1.1 (1-2) Urine Color Light yellow (Yellow) Urine Appearance Clear (Clear) Urine pH 5.5 (5.0-8.0) Ur Specific [place] 1.020 (1.005-1.030) Urine Protein Negative (Negative) Urine Glucose (UA) Negative (Negative) Urine Ketones Negative (Negative) Urine Occult Blood Negative (Negative) Urine Nitrite Negative (Negative) Urine Bilirubin Negative (Negative) Urine Urobilinogen 0.2 (0.2-1.0) Ur Leukocyte Esterase Negative (Negative) Med Orders - Current: Current Medications Albuterol/Ipratropium (Duoneb 3.0-0.5 Mg/3 Ml) 3 ml NEB Q4HRRT PRN PRN Reason: Shortness of Breath Apixaban (Eliquis) 2.5 mg PO BID [facility] Bisacodyl (Dulcolax) 5 mg PO DAILY PRN PRN Reason: Constipation Cholecalciferol (Vitamin D3) 5,000 unit PO DAILY [facility] Cyclobenzaprine HCl (Flexeril) 5 mg PO TID PRN PRN Reason: Spasms Docusate Sodium (Colace) 100 mg PO BID [facility] Last Admin: 02/21/20 20:06 Dose: 100 mg Documented by: Famotidine (Pepcid) 20 mg PO Q12H [facility] Last Admin: 02/21/20 20:06 Dose: 20 mg Documented by: Hydralazine HCl (Apresoline) 10 mg IVPUSH Q6H PRN PRN Reason: Hypertension Hydromorphone HCl (Dilaudid) 0.2 mg IVPUSH Q2H PRN PRN Reason: Pain (moderate 4-6) Levothyroxine Sodium (Levothyroxine) 75 mcg PO ACBREAKFAST [facility] Last Admin: 02/22/20 05:26 Dose: 75 mcg Documented by: Magnesium Hydroxide (Milk Of Magnesia) 30 ml PO BID PRN PRN Reason: Constipation Metoprolol Succinate (Toprol Xl) 12.5 mg PO DAILY [facility] Naloxone HCl (Narcan) 0.1 mg IVPUSH Q5M PRN PRN Reason: Oversedation Ondansetron HCl (Zofran) 4 mg IVPUSH Q6H PRN PRN Reason: Nausea/Vomiting Saccharomyces Boulardii (Florastor) 250 mg PO DAILY [facility] Senna (Senna) 8.6 mg PO BID PRN PRN Reason: Constipation Simvastatin (Zocor) 10 mg PO DAILY [facility] Tapentadol (Nucynta) 50 - 100 mg PO Q6H PRN PRN Reason: Pain Last Admin: 02/22/20 05:26 Dose: 100 mg Documented by: Discontinued Medications Bupivacaine HCl (Sensorcaine-Mpf 0.25%) Confirm Administered Dose 30 ml .ROUTE .STK-MED ONE Stop: 02/21/20 07:08 Last Admin: 02/21/20 09:08 Dose: 30 ml Documented by: Cefazolin Sodium (Ancef) Confirm Administered Dose 2 gm .ROUTE .STK-MED ONE Stop: 02/21/20 06:43 Last Admin: 02/21/20 09:04 Dose: 2 gm Documented by: Cefazolin Sodium (Ancef) Confirm Administered Dose 2 gm .ROUTE .STK-MED ONE Stop: 02/21/20 07:08 Morphine Sulfate 8 mg/Epinephrine HCl 0.3 mg/Cefuroxime Sodium 750 mg/Ketorolac Tromethamine 30 mg/Sodium Chloride 7.9 ml 0 mg .XX ASDIRECTED PRN PRN Reason: Pain Last Admin: 02/21/20 09:08 Dose: 788.3 mg Documented by: Dexamethasone (Dexamethasone) Confirm Administered Dose 20 mg .ROUTE .STK-MED ONE Stop: 02/21/20 06:43 Epinephrine HCl (Adrenalin) Confirm Administered Dose 1 mg .ROUTE .STK-MED ONE Stop: 02/21/20 06:56 Fentanyl (Sublimaze) Confirm Administered Dose 0 mcg .ROUTE .STK-MED ONE Stop: 02/21/20 06:42 Fentanyl (Sublimaze) 50 mcg IVPUSH Q5M PRN PRN Reason: Pain Stop: 02/21/20 18:00 Hydromorphone HCl (Dilaudid) 0.5 mg IVPUSH Q10M PRN PRN Reason: Pain (severe 7-10) Stop: 02/21/20 18:00 Last Admin: 02/21/20 13:02 Dose: 0.5 mg Documented by: Lactated Ringer's (Ringers, Lactated) 1,000 mls @ 75 mls/hr IV ASDIRECTED [facility] Stop: 02/21/20 23:00 Last Admin: 02/21/20 07:20 Dose: 125 mls/hr Documented by: Lidocaine HCl (Xylocaine-Mpf 1%) Confirm Administered Dose 4 mls @ as directed .ROUTE .STK-MED ONE Stop: 02/21/20 06:42 Cefazolin Sodium/Dextrose 2 gm (/ Premix) 50 mls @ 100 mls/hr IV Q8H [facility] Stop: 02/22/20 07:29 Last Admin: 02/22/20 06:46 Dose: 100 mls/hr Documented by: Lactated Ringer's (Ringers, Lactated) Confirm Administered Dose 1,000 mls @ as directed .ROUTE .STK-MED ONE Stop: 02/21/20 08:43 Iodine (Iodine 2% Mild Tincture) Confirm Administered Dose 30 ml .ROUTE .STK-MED ONE Stop: 02/21/20 07:08 Last Admin: 02/21/20 09:02 Dose: 18 ml Documented by: Ketorolac Tromethamine (Toradol) Confirm Administered Dose 15 mg .ROUTE .STK-MED ONE Stop: 02/21/20 06:43 Ketorolac Tromethamine (Toradol) 15 mg IVPUSH Q6H PRN PRN Reason: Pain Last Admin: 02/21/20 22:55 Dose: 15 mg Documented by: Lidocaine/Sodium Bicarbonate (Buffered Lidocaine 1% In Ns 8.4%) 0.25 ml IDERM ONETIME PRN PRN Reason: Prior to IV Start Stop: 02/21/20 18:00 Last Admin: 02/21/20 07:40 Dose: 0.25 ml Documented by: Midazolam HCl (Versed 1 Mg/Ml) Confirm Administered Dose 2 mg .ROUTE .STK-MED ONE Stop: 02/21/20 06:42 Ondansetron HCl (Zofran) Confirm Administered Dose 4 mg .ROUTE .STK-MED ONE Stop: 02/21/20 06:43 Ondansetron HCl (Zofran) 4 mg IVPUSH ONETIME PRN PRN Reason: Nausea/Vomiting Stop: 02/21/20 18:00 Propofol (Diprivan 20 Ml) Confirm Administered Dose 400 mg .ROUTE .STK-MED ONE Stop: 02/21/20 06:42 Ropivacaine (Naropin 0.5%) Confirm Administered Dose 30 ml .ROUTE .STK-MED ONE Stop: 02/21/20 06:57 Scopolamine (Transderm-Scop) 1.5 mg TOP ONETIME ONE Stop: 02/21/20 07:34 Last Admin: 02/21/20 07:43 Dose: 1.5 mg Documented by: Sodium Chloride (Saline Flush) 10 ml FLUSH ASDIRECTED PRN PRN Reason: Keep Vein Open Stop: 02/21/20 18:00 Tranexamic Acid (Cyklokapron) Confirm Administered Dose 1,000 mg .ROUTE .STK-MED ONE Stop: 02/21/20 07:08 Last Admin: 02/21/20 09:16 Dose: 1,000 mg Documented by: Vancomycin HCl (Vancomycin) Confirm Administered Dose 1 gm .ROUTE .STK-MED ONE Stop: 02/21/20 07:08 Last Admin: 02/21/20 09:10 Dose: 1 gm Documented by: - Exam Wound/Incisions: Dressing Dry and Intact General: Alert, Cooperative, No Acute Distress Lungs: Normal Respiratory Effort Extremities: Other (NVS intact for BLE. Sallie's negative.) Sepsis Event Note - Evaluation Sepsis Screening Result: No Definite Risk - Focused Exam Vital Signs: Vital Signs Temp Pulse Resp BP Pulse Ox 02/22/20 07:20 97.0 F 59 L 20 127/76 93 L 02/22/20 05:24 97.9 F 60 16 138/73 95 02/21/20 23:01 98.8 F 64 18 129/63 93 L Date Exam was Performed: 02/22/20 Time Exam was Performed: 08:26 - Problem List Review Problem List Initiated/Reviewed/Updated: Yes - My Orders Last 24 Hours: Active Orders 24 hr Category Date Time Status RT Aerosol Therapy [RC] ASDIRECTED Care 02/21/20 12:37 Active Ready for Discharge [RC] PER UNIT ROUTINE Care 02/22/20 08:26 Ordered Regular Diet [DIET] Diet 02/21/20 Lunch Active Albuterol/Ipratropium [DuoNeb 3.0-0.5 MG/3 ML] Med 02/21/20 12:37 Active 3 ml NEB Q4HRRT PRN Apixaban [Eliquis] Med 02/22/20 09:00 Active 2.5 mg PO BID Cholecalciferol (Vitamin D3) [Vitamin D3] Med 02/22/20 09:00 Active 5,000 unit PO DAILY Docusate Sodium [Colace] Med 02/21/20 21:00 Active 100 mg PO BID Famotidine [Pepcid] Med 02/21/20 21:00 Active 20 mg PO Q12H Levothyroxine Med 02/22/20 06:00 Active 75 mcg PO ACBREAKFAST Metoprolol Succinate [Toprol XL] Med 02/22/20 09:00 Active 12.5 mg PO DAILY Saccharomyces Boulardii [Florastor] Med 02/22/20 09:00 Active 250 mg PO DAILY Simvastatin [Zocor] Med 02/22/20 09:00 Active 10 mg PO DAILY hydrALAZINE [Apresoline] Med 02/21/20 12:38 Active 10 mg IVPUSH Q6H PRN Medication Orders Albuterol/Ipratropium (Duoneb 3.0-0.5 Mg/3 Ml) 3 ml NEB Q4HRRT PRN PRN Reason: Shortness of Breath Apixaban (Eliquis) 2.5 mg PO BID [facility] Bisacodyl (Dulcolax) 5 mg PO DAILY PRN PRN Reason: Constipation Cholecalciferol (Vitamin D3) 5,000 unit PO DAILY [facility] Cyclobenzaprine HCl (Flexeril) 5 mg PO TID PRN PRN Reason: Spasms Docusate Sodium (Colace) 100 mg PO BID [facility] Last Admin: 02/21/20 20:06 Dose: 100 mg Documented by: HARJINDER Famotidine (Pepcid) 20 mg PO Q12H [facility] Last Admin: 02/21/20 20:06 Dose: 20 mg Documented by: WESLYL Hydralazine HCl (Apresoline) 10 mg IVPUSH Q6H PRN PRN Reason: Hypertension Hydromorphone HCl (Dilaudid) 0.2 mg IVPUSH Q2H PRN PRN Reason: Pain (moderate 4-6) Levothyroxine Sodium (Levothyroxine) 75 mcg PO ACBREAKFAST [facility] Last Admin: 02/22/20 05:26 Dose: 75 mcg Documented by: DIALLO Magnesium Hydroxide (Milk Of Magnesia) 30 ml PO BID PRN PRN Reason: Constipation Metoprolol Succinate (Toprol Xl) 12.5 mg PO DAILY [facility] Naloxone HCl (Narcan) 0.1 mg IVPUSH Q5M PRN PRN Reason: Oversedation Ondansetron HCl (Zofran) 4 mg IVPUSH Q6H PRN PRN Reason: Nausea/Vomiting Saccharomyces Boulardii (Florastor) 250 mg PO DAILY [facility] Senna (Senna) 8.6 mg PO BID PRN PRN Reason: Constipation Simvastatin (Zocor) 10 mg PO DAILY [facility] Tapentadol (Nucynta) 50 - 100 mg PO Q6H PRN PRN Reason: Pain Last Admin: 02/22/20 05:26 Dose: 100 mg Documented by: Admin: 02/21/20 22:57 Dose: 100 mg Documented by: Admin: 02/21/20 15:07 Dose: 50 mg Documented by: ROQUE - Assessment Assessment (Free Text/Narrative):: POD#1 - left TKA - Plan Plan (Free Text/Narrative):: 1. Discharge to home today. 2. Hgb 10.9. 3. Eliquis BID (family hx VTE), frequent mobility, TEDs. 4. Outpatient therapy. The pt's case was discussed with Dr. Gilmore.
[2020-02-22] MEDS: Famotidine 20 MG Tab PO SCH (08:36)
[2020-02-22] MEDS: Docusate Sodium 100 MG Cap PO SCH (08:37)
[2020-02-22 08:38] VITALS: PULSE 62
[2020-02-22] MEDS ORDERED: Saccharomyces Boulardii (Probiotic) 250 MG Cap PO SCH (09:00)
[2020-02-22] MEDS ORDERED: Apixaban 2.5 MG Tab PO SCH (09:00)
[2020-02-22] MEDS ORDERED: Cholecalciferol (Vitamin D3) 5,000 UNIT Tab PO SCH (09:00)
[2020-02-22] MEDS ORDERED: Metoprolol Succinate 25 MG Tab.ER PO SCH (09:00)
[2020-02-22] MEDS ORDERED: Simvastatin 10 MG Tab PO SCH (09:00)
--- NOTE | 2020-02-22 10:39 | PCM.PN ---
- General Info Date of Service: 02/22/20 - Review of Systems Systems Review Comment:: Patient resting in bed, at time of my exam reported pain /. Had just participated with both physical therapy, Occupational Therapy. Surgical site appears clean and dry. No acute concerns reported by patient. - Patient Data Vitals - Most Recent: Last Vital Signs Temp 97.0 F 02/22/20 07:20 Pulse 62 02/22/20 08:33 Resp 20 02/22/20 07:20 BP 127/76 02/22/20 08:33 Pulse Ox 93 L 02/22/20 07:20 Weight - Most Recent: 190 lb I&O - Last 24 Hours: Intake & Output 02/21/20 02/22/20 02/22/20 22:59 06:59 14:59 Intake Total 1230 250 Output Total 400 200 Balance 830 50 Lab Results Last 24 Hours: Laboratory Results - last 24 hr 02/21/20 02/22/20 02/22/20 Range/Units 18:15 05:00 05:08 WBC 9.54 (3.98-10.04) K/mm3 RBC 3.82 L (3.98-5.22) M/mm3 Hgb 10.9 L D (11.2-15.7) gm/dl Hct 34.9 (34.1-44.9) % MCV 91.4 D (79.4-94.8) fl MCH 28.5 (25.6-32.2) pg MCHC 31.2 L (32.2-35.5) g/dl RDW Std Deviation 43.9 (36.4-46.3) fL Plt Count 180 L D (182-369) K/mm3 MPV 10.1 (9.4-12.3) fl Sodium 139 (136-145) mEq/L Potassium 4.6 (3.5-5.1) mEq/L Chloride 105 (98-107) mEq/L Carbon Dioxide 25 (21-32) mEq/L Anion Gap 13.6 (5-15) BUN 22 H (7-18) mg/dL Creatinine 1.0 (0.55-1.02) mg/dL Est Cr Clr Drug Dosing 44.36 mL/min Estimated GFR (MDRD) 53 (>60) mL/min BUN/Creatinine Ratio 22.0 H (14-18) Glucose 107 (83-115) mg/dL Calcium 8.7 (8.5-10.1) mg/dL Phosphorus 3.2 (2.6-4.7) mg/dL Total Bilirubin 0.3 (0.2-1.0) mg/dL AST 22 (15-37) U/L ALT 24 (14-59) U/L Alkaline Phosphatase 51 (46-116) U/L Total Protein 5.5 L (6.4-8.2) g/dl Albumin 2.9 L (3.4-5.0) g/dl Globulin 2.6 gm/dL Albumin/Globulin Ratio 1.1 (1-2) Urine Color Light yellow (Yellow) Urine Appearance Clear (Clear) Urine pH 5.5 (5.0-8.0) Ur Specific [place] 1.020 (1.005-1.030) Urine Protein Negative (Negative) Urine Glucose (UA) Negative (Negative) Urine Ketones Negative (Negative) Urine Occult Blood Negative (Negative) Urine Nitrite Negative (Negative) Urine Bilirubin Negative (Negative) Urine Urobilinogen 0.2 (0.2-1.0) Ur Leukocyte Esterase Negative (Negative) - Exam General: Alert, Oriented HEENT: Pupils Equal, Pupils Reactive, EOMI, Mucous Membr. Moist/[place] Neck: Supple Lungs: Clear to Auscultation, Normal Respiratory Effort Cardiovascular: Regular Rate, Regular Rhythm GI/Abdominal Exam: Normal Bowel Sounds, Soft, Non-Tender, No Organomegaly Back Exam: Normal Inspection, Other Extremities: Normal Inspection, Normal Range of Motion, Other (limited range of motion on left knee expected after surgery) Skin: Warm, Dry, Intact Sepsis Event Note - Evaluation Sepsis Screening Result: No Definite Risk - Focused Exam Vital Signs: Vital Signs Temp Pulse Resp BP Pulse Ox 02/22/20 08:33 62 127/76 02/22/20 07:20 97.0 F 59 L 20 127/76 93 L 02/22/20 05:24 97.9 F 60 16 138/73 95 02/21/20 23:01 98.8 F 64 18 129/63 93 L - Problem List & Annotations (1) Hypertension SNOMED Code(s): 47606372 Code(s): I10 - ESSENTIAL (PRIMARY) HYPERTENSION Status: Acute Current Visit: Yes (2) Dyslipidemia SNOMED Code(s): 785345052 Code(s): E78.5 - HYPERLIPIDEMIA, UNSPECIFIED Status: Acute Current Visit: Yes (3) Osteoarthritis of left knee SNOMED Code(s): 801346176356995 Code(s): M17.12 - UNILATERAL PRIMARY OSTEOARTHRITIS, LEFT KNEE Status: Acute Current Visit: Yes (4) Hypothyroidism SNOMED Code(s): 81477146 Code(s): E03.9 - HYPOTHYROIDISM, UNSPECIFIED Status: Acute Current Visit: Yes (5) History of recurrent UTI (urinary tract infection) SNOMED Code(s): 559304223 Code(s): Z87.440 - PERSONAL HISTORY OF URINARY (TRACT) INFECTIONS Status: Acute Current Visit: Yes - Problem List Review Problem List Initiated/Reviewed/Updated: Yes - Plan Plan:: Osteoarthritics of left knee status post left total knee replacement: Today postop day 1. Yesterday, the patient had an uneventful left knee replacement. Today, the patient's H&H remained stable 10.9/34.9, no obvious signs of infection. Patient participated with physical therapy pain appears to be well controlled. Patient is encouraged to continue with incentive spirometry every hour while awake. History of recurrent Urinary tract infection: Patient has significant history of UTIs. On 02/07/2020, patient was recently found with E. coli fortunately pansensitive. Since UA was repeated fortunately no obvious signs of infection. Postoperatively, the patient received 3 doses of Ancef. I do not think the patient needs an additional antibiotics. Hypothyroidism: We will continue home dose of TSH. Hypertension: The patient's blood pressure normotensive 127/76, patient is recommended to continue with previously established home medications. Dyslipidemia: Continue home dose of agents. DVT prophylaxis: Patient already started on Eliquis 0.5 mg p.o. twice daily. Risk and benefits explained to patient. Patient is advised to monitor for any signs of bleeding,increased drainage. Advised to contact PCP/orthopedic surgeon or come back to ER if noticed any signs of bleeding. Nausea: Zofran 4 mg as needed nausea GI prophylaxis: Pepcid twice daily. Pain/fever: Acetaminophen 650 mg/mL pain/fever, continue pain medication started by Ortho. Constipation prophylaxis: Patient will continue on docusate twice daily. CODE STATUS: Full code Disposition : The patient is stable, patient participated today with physical therapy, pain appears to be well-controlled. No obvious signs of infection. Patient is recommended to continue with physical therapy/Occupational Therapy as recommended by orthopedic, continue blood thinners as recommended, from hospital standpoint, the patient can be discharged home.
[2020-02-22 11:48] VITALS: BP 122/81
--- NOTE | 2020-02-23 09:56 | PCM.DCSUM1 ---
Discharge Summary - Hospital Course Brief History: Emiliana is a 79 yo female who underwent left TKA with Dr. Gilmore on 01-31-2020. The procedure was completed under spinal anesthesia with sedation. A post-operative adductor canal block was provided. The pt tolerated the procedure well and was admitted to the Medical-Surgical Unit. Medical management was provided by the Hospitalist service. The pt's Hospital course was uneventful. The pt's Hgb on POD#1 was 10.9. On POD#1, Eliquis 2.5mg BID was initiated for VTE prophylaxis. SCDs and TEDs were also ordered. A Mepilex dressing was placed at the incision site at the time of surgery and remained clean and dry. The pt participated in P.T. and O.T. and progressed well. The pt was allowed to WBAT and used a FWW for mobility. On POD#1, the pt was deemed appropriate to discharge to home with her sister. Diagnosis: Stroke: No - Discharge Data Discharge Date: 02/22/20 Discharge Disposition: Home, Self-Care 01 Condition: Good - Referral to Home Health Primary Care Physician: Gardenia De La Vega METAL BED ASSEMBLER - Patient Summary/Data Consults: Consultations 02/21/20 06:52 OT Evaluation and Treatment [CONS] Routine PT Evaluation and Treatment [CONS] Routine 02/21/20 06:57 Consult to Physician [CONS] Routine - Patient Instructions Diet: Usual Diet as Tolerated Activity: Apply Ice, As Tolerated, Elevate Extremity, Full Weight Bearing Driving: Do Not Drive Showering/Bathing: May Shower Wound/Incision Care: Keep Operative Site/Wound Site Clean and Dry, Do NOT Change Dressing Notify Provider of: Fever, Increased Pain, Swelling and Redness, Drainage, Nausea and/or Vomiting Other/Special Instructions: Please get up and moving around EVERY HOUR while awake. This helps to prevent blood clots. Please use your walker and have help with mobility as needed. Take a short walk in your home every hour while awake. Please take the blood thinner Eliquis twice daily. The Eliquis is being used to prevent blood clots. At home, please complete the exercises that you learned during the Hospital stay. Schedule for physical therapy. Use the pain medication as needed. The medication may cause drowsiness and constipation. Contact your primary care provider for instructions if you are constipated. You may use a stool softener like docusate sodium or Colace 100mg twice daily and/or a laxative like Miralax daily for constipation. Increase your water and fiber intake while you are using the pain medication. Please discontinue use of the prescription pain medication as soon as able. The goal is to use the least amount of prescription pain medication as needed and to discontinue use of the prescription pain medication as soon as possible. Please do not use other medic ations that may cause drowsiness (other pain medications, anxiety pills, cold medications, sleeping pills, etc) while using the prescription pain medication. Do not use alcohol while using the pain medication. At this time, please do not use ibuprofen (Motrin, Advil) or naproxen (Aleve) for pain management as you are using the Eliquis. When the Eliquis course is completed in 4 to 6 weeks, you could use ibuprofen or naproxen for pain management (if this is allowed by your primary care provider). Wear the WILLY hose during the day and you may remove these at night. Elevate the limb to decrease swelling. Place ice to the area often. Place a towel between your skin and the blue pad. Use the incentive spirometer often. Take deep breaths throughout the day. Please keep the dressing in place until follow-up. Notify the Clinic if the dressing becomes saturated. Increase your protein intake while you are healing. If you have diabetes or have been instructed by your primary care provider to check your blood sugars, please closely monitor your blood sugars and notify your primary care provider with abnormal values. Elevated blood sugars increases the risk of infection. It is normal to have swelling and bruising at the surgical site, as well as above and below the surgical site. Call the Clinic with questions or concerns - [phone] and leave a message for the nurse. - Discharge Plan *PRESCRIPTION DRUG MONITORING PROGRAM REVIEWED*: No *COPY OF PRESCRIPTION DRUG MONITORING REPORT IN PATIENT GUCCI: No Prescriptions/Med Rec: Apixaban [Eliquis] 2.5 mg PO BID #60 tablet Sennosides [Evac-U-Gen] 8.6 mg PO BEDTIME #30 tablet Cyclobenzaprine [Flexeril] 5 mg PO BID PRN #20 tablet PRN Reason: Spasms Tapentadol [Nucynta] 50 - 100 mg PO Q6H PRN #60 tablet PRN Reason: Pain Home Medications: Home Meds Aspirin 81 mg PO DAILY 08/07/20 [History] Cholecalciferol (Vitamin D3) [Vitamin D3] 5,000 unit PO DAILY 02/18/20 [History] Ipratropium [Atrovent 0.06% Nasal [place]] 1 spray NASBOTH TID PRN 02/18/20 [History] L.acidoph,Paracasei, B.lactis [Probiotic] 1 cap PO DAILY 02/18/20 [History] Levothyroxine 75 mcg PO DAILY 02/18/20 [History] Metoprolol Succinate 12.5 mg PO DAILY 02/18/20 [History] Pitavastatin Calcium [Livalo] 1 mg PO DAILY 02/18/20 [History] Ubidecarenone [Co Q-10] 100 mg PO DAILY 02/18/20 [History] hydroCHLOROthiazide [Hydrochlorothiazide] 25 mg PO DAILY 02/18/20 [History] Apixaban [Eliquis] 2.5 mg PO BID #60 tablet 02/22/20 [Rx] Cyclobenzaprine [Flexeril] 5 mg PO BID PRN #20 tablet 02/22/20 [Rx] Docusate Sodium [Colace] 100 mg PO BID cap 02/22/20 [Rx] Magnesium Hydroxide [Milk of Magnesia] 30 ml PO BID PRN cup 02/22/20 [Rx] Sennosides [Evac-U-Gen] 8.6 mg PO BEDTIME #30 tablet 02/22/20 [Rx] Sennosides [Senna] 8.6 mg PO BID PRN tablet 02/22/20 [Rx] Tapentadol [Nucynta] 50 - 100 mg PO Q6H PRN #60 tablet 02/22/20 [Rx] bisacodyL [Dulcolax] 5 mg PO DAILY PRN tablet 02/22/20 [Rx] Patient Handouts: Total Knee Replacement, Care After, [id number], Apixaban oral tablets Referrals: Nasreen Madrid PA-C [Physician Facs Teacher] - (1. Follow-up with SAVANA White on Saturday, February 29, 2020 at 10:00am. 2. Follow-up with SAVANA White on Saturday, March 07, 2020 at 11:45am. 3. Follow-up with SAVANA White on Saturday, April 04, 2020 at 10:00am.) - Discharge Summary/Plan Comment DC Time >30 min.: No - Patient Data Vitals - Most Recent: Last Vital Signs Temp 97.0 F 02/22/20 11:39 Pulse 62 02/22/20 11:39 Resp 20 02/22/20 11:39 BP 122/81 02/22/20 11:39 Pulse Ox 94 L 02/22/20 11:39 Weight - Most Recent: 200 lb Med Orders - Current: Current Medications Discontinued Medications Albuterol/Ipratropium (Duoneb 3.0-0.5 Mg/3 Ml) 3 ml NEB Q4HRRT PRN PRN Reason: Shortness of Breath Apixaban (Eliquis) 2.5 mg PO BID [facility] Last Admin: 02/22/20 08:34 Dose: 2.5 mg Documented by: Bisacodyl (Dulcolax) 5 mg PO DAILY PRN PRN Reason: Constipation Bupivacaine HCl (Sensorcaine-Mpf 0.25%) Confirm Administered Dose 30 ml .ROUTE .STK-MED ONE Stop: 02/21/20 07:08 Last Admin: 02/21/20 09:08 Dose: 30 ml Documented by: Cefazolin Sodium (Ancef) Confirm Administered Dose 2 gm .ROUTE .STK-MED ONE Stop: 02/21/20 06:43 Last Admin: 02/21/20 09:04 Dose: 2 gm Documented by: Cefazolin Sodium (Ancef) Confirm Administered Dose 2 gm .ROUTE .STK-MED ONE Stop: 02/21/20 07:08 Cholecalciferol (Vitamin D3) 5,000 unit PO DAILY [facility] Last Admin: 02/22/20 08:34 Dose: 5,000 unit Documented by: Morphine Sulfate 8 mg/Epinephrine HCl 0.3 mg/Cefuroxime Sodium 750 mg/Ketorolac Tromethamine 30 mg/Sodium Chloride 7.9 ml 0 mg .XX ASDIRECTED PRN PRN Reason: Pain Last Admin: 02/21/20 09:08 Dose: 788.3 mg Documented by: Cyclobenzaprine HCl (Flexeril) 5 mg PO TID PRN PRN Reason: Spasms Last Admin: 02/22/20 12:20 Dose: 5 mg Documented by: Dexamethasone (Dexamethasone) Confirm Administered Dose 20 mg .ROUTE .STK-MED ONE Stop: 02/21/20 06:43 Docusate Sodium (Colace) 100 mg PO BID [facility] Last Admin: 02/22/20 08:37 Dose: 100 mg Documented by: Epinephrine HCl (Adrenalin) Confirm Administered Dose 1 mg .ROUTE .STK-MED ONE Stop: 02/21/20 06:56 Famotidine (Pepcid) 20 mg PO Q12H [facility] Last Admin: 02/22/20 08:36 Dose: 20 mg Documented by: Fentanyl (Sublimaze) Confirm Administered Dose 0 mcg .ROUTE .STK-MED ONE Stop: 02/21/20 06:42 Fentanyl (Sublimaze) 50 mcg IVPUSH Q5M PRN PRN Reason: Pain Stop: 02/21/20 18:00 Hydralazine HCl (Apresoline) 10 mg IVPUSH Q6H PRN PRN Reason: Hypertension Hydromorphone HCl (Dilaudid) 0.2 mg IVPUSH Q2H PRN PRN Reason: Pain (moderate 4-6) Hydromorphone HCl (Dilaudid) 0.5 mg IVPUSH Q10M PRN PRN Reason: Pain (severe 7-10) Stop: 02/21/20 18:00 Last Admin: 02/21/20 13:02 Dose: 0.5 mg Documented by: Lactated Ringer's (Ringers, Lactated) 1,000 mls @ 75 mls/hr IV ASDIRECTED [facility] Stop: 02/21/20 23:00 Last Admin: 02/21/20 07:20 Dose: 125 mls/hr Documented by: Lidocaine HCl (Xylocaine-Mpf 1%) Confirm Administered Dose 4 mls @ as directed .ROUTE .STK-MED ONE Stop: 02/21/20 06:42 Cefazolin Sodium/Dextrose 2 gm (/ Premix) 50 mls @ 100 mls/hr IV Q8H [facility] Stop: 02/22/20 07:29 Last Admin: 02/22/20 06:46 Dose: 100 mls/hr Documented by: Lactated Ringer's (Ringers, Lactated) Confirm Administered Dose 1,000 mls @ as directed .ROUTE .STK-MED ONE Stop: 02/21/20 08:43 Iodine (Iodine 2% Mild Tincture) Confirm Administered Dose 30 ml .ROUTE .STK-MED ONE Stop: 02/21/20 07:08 Last Admin: 02/21/20 09:02 Dose: 18 ml Documented by: Ketorolac Tromethamine (Toradol) Confirm Administered Dose 15 mg .ROUTE .STK-MED ONE Stop: 02/21/20 06:43 Ketorolac Tromethamine (Toradol) 15 mg IVPUSH Q6H PRN PRN Reason: Pain Last Admin: 02/21/20 22:55 Dose: 15 mg Documented by: Levothyroxine Sodium (Levothyroxine) 75 mcg PO ACBREAKFAST WENDI Last Admin: 02/22/20 05:26 Dose: 75 mcg Documented by: Lidocaine/Sodium Bicarbonate (Buffered Lidocaine 1% In Ns 8.4%) 0.25 ml IDERM ONETIME PRN PRN Reason: Prior to IV Start Stop: 02/21/20 18:00 Last Admin: 02/21/20 07:40 Dose: 0.25 ml Documented by: Magnesium Hydroxide (Milk Of Magnesia) 30 ml PO BID PRN PRN Reason: Constipation Metoprolol Succinate (Toprol Xl) 12.5 mg PO DAILY [facility] Last Admin: 02/22/20 08:33 Dose: 12.5 mg Documented by: Midazolam HCl (Versed 1 Mg/Ml) Confirm Administered Dose 2 mg .ROUTE .STK-MED ONE Stop: 02/21/20 06:42 Naloxone HCl (Narcan) 0.1 mg IVPUSH Q5M PRN PRN Reason: Oversedation Ondansetron HCl (Zofran) Confirm Administered Dose 4 mg .ROUTE .STK-MED ONE Stop: 02/21/20 06:43 Ondansetron HCl (Zofran) 4 mg IVPUSH Q6H PRN PRN Reason: Nausea/Vomiting Ondansetron HCl (Zofran) 4 mg IVPUSH ONETIME PRN PRN Reason: Nausea/Vomiting Stop: 02/21/20 18:00 Propofol (Diprivan 20 Ml) Confirm Administered Dose 400 mg .ROUTE .STK-MED ONE Stop: 02/21/20 06:42 Ropivacaine (Naropin 0.5%) Confirm Administered Dose 30 ml .ROUTE .STK-MED ONE Stop: 08/10/20 06:57 Saccharomyces Boulardii (Florastor) 250 mg PO DAILY [facility] Last Admin: 02/22/20 08:36 Dose: 250 mg Documented by: Scopolamine (Transderm-Scop) 1.5 mg TOP ONETIME ONE Stop: 02/21/20 07:34 Last Admin: 02/21/20 07:43 Dose: 1.5 mg Documented by: Senna (Senna) 8.6 mg PO BID PRN PRN Reason: Constipation Simvastatin (Zocor) 10 mg PO DAILY [facility] Last Admin: 02/22/20 08:33 Dose: 10 mg Documented by: Sodium Chloride (Saline Flush) 10 ml FLUSH ASDIRECTED PRN PRN Reason: Keep Vein Open Stop: 02/21/20 18:00 Tapentadol (Nucynta) 50 - 100 mg PO Q6H PRN PRN Reason: Pain Last Admin: 02/22/20 10:52 Dose: 50 mg Documented by: Tranexamic Acid (Cyklokapron) Confirm Administered Dose 1,000 mg .ROUTE .STK-MED ONE Stop: 02/21/20 07:08 Last Admin: 02/21/20 09:16 Dose: 1,000 mg Documented by: Vancomycin HCl (Vancomycin) Confirm Administered Dose 1 gm .ROUTE .STK-MED ONE Stop: 02/21/20 07:08 Last Admin: 02/21/20 09:10 Dose: 1 gm Documented by:
--- NOTE | 2020-02-28 09:37 | PCM.OPNOTE ---
- General Post-Op/Procedure Note Date of Surgery/Procedure: 02/21/20 Operative Procedure(s): left total knee arthroplasty Pre Op Diagnosis: left knee osteoarthrosis Post-Op Diagnosis: Same Anesthesia Technique: Local, MAC, Spinal Primary Surgeon: Jaison Gilmore Anesthesia Provider: Flory Chaudhry [employer] Officer: Nasreen Madrid [employer] Officer: Soni Avelar in mLs: 5 Complications: None Condition: Good Free Text/Narrative:: 10/15 10mm 29x9
--- NOTE | 2020-02-28 10:03 | OR ---
DATE OF OPERATION: 02/21/2020 SURGEON: Jaison Gilmore MD OPERATION PERFORMED: Left total knee arthroplasty. PREOPERATIVE DIAGNOSIS: Left knee osteoarthrosis. POSTOPERATIVE DIAGNOSIS: Left knee osteoarthrosis. ANESTHESIA: Local MAC with spinal. ANESTHESIA PROVIDER: Viola Wall. ASSISTANTS: Nasreen Madrid PA-C, and Soni Avelar LPN ESTIMATED BLOOD LOSS: 5 mL. COMPLICATIONS: None. CONDITION: Stable. IMPLANTS: 1. Shelbi size 4 cemented PS femur. 2. [place] size 4 cemented [place] tibial baseplate. 3. [place] size 4, 10 mm PS X3 polyethylene insert. 4. Shelbi size 29 x 9 mm cemented asymmetric patella. DESCRIPTION OF PROCEDURE: The patient was identified in the preop holding area. Proper site was marked and identified by the surgeon. The patient was taken back to the operating theater. After adequate anesthesia, the patient's left lower extremity had a nonsterile tourniquet applied and it was sterilely prepped and draped in the usual sterile fashion. OR time-out was performed. The patient received 2 g IV Ancef. At this time, the left lower extremity was exsanguinated. Tourniquet was insufflated to 300 mmHg. Standard medial parapatellar incision was made. Medial parapatellar arthrotomy was created. Deep fibers of the MCL were raised and anterior fat pad was resected. At this time, attention was turned to the patella. Patella measured 22, it was resected to a 13 for a 29 x 9 mm patella. Drill holes were then drilled and found to be in adequate position. The drill was then drilled in the distal femur and the intramedullary distal femoral cutting guide was then placed. 8 mm was resected off the distal femur and was found to be an adequate resection. Sizing guide was placed. It was found to be a size 4 cemented PS femur that was shown on the implant record at the beginning of this dictation. The drill holes were drilled for the epicondylar axis using [place] line and epicondyles as reference. At this time, the 4-in-1 cutting block was placed. An anterior posterior and anterior and posterior chamfer cuts were then completed. Attention was turned to the tibia. The posterior medial lateral retractors were placed. Box cut was completed. The extramedullary tibial guide was placed. It was placed in the old footprint of the ACL. It was aligned with the center of the ankle and 0 degrees of slope, 9 mm was then resected off the unaffected side. There was found to be an acceptable reduction. At this time, posterior osteophytes were removed along with medial and lateral meniscus. A trial implant was placed with a correct sized tibia that was mentioned at the beginning of the dictation. A [place] size 4, 10 mm PS X3 polyethylene insert was then placed. The patient's knee was brought through range of motion. The patella was tracking centrally and was stable to varus and valgus stress. Alignment was found to be roughly at 0 degrees. The tibia was stamped and drilled in proper rotation. The universal tibial base plate was impacted in place. Next, the Shelbi size 4 cemented PS femur impacted into place and the [place] size 4, 10 mm PS X3 polyethylene insert was placed. The patient's knee was brought into full extension. The patella was then cemented in place at this time. excess cement was removed. One liter dilute Betadine solution was irrigated through the knee along with 3 L of pulse lavage irrigation with Ancef. Periarticular injection was then completed. The patient's knee was brought through a range of motion. Once the cement had time to set up and it was found to be stable to varus valgus stress, the patella was tracking centrally with full range of motion. At this time, a #2 barbed suture was used for closure of the medial parapatellar arthrotomy. Topical tranexamic acid was placed. 2-0 Vicryl was used subcutaneously, Prineo was used for the skin. The patient tolerated the procedure well and was sent to the PACU in stable condition. MMODAL /[id number] [facility]
== END 2020-02-22 12:35 | disposition home or self-care (01) | DRG 470 ==
LOC: JD.SDS 06:56 → JD.MS 06:56 → JD.SDS 06:57 → JD.MS 06:57
PROVIDERS: ADMIT Orthopaedic Surgery; ATTEND Orthopaedic Surgery
PROC: 0SRD0J9 Replacement of Left Knee Joint with Synthetic Substitute, Cemented, Open Approach (ICD-10-PCS; principal; 2020-02-21)
DX: M17.12 Unilateral primary osteoarthritis, left knee (principal); E03.9 Hypothyroidism, unspecified; F41.9 Anxiety disorder, unspecified; E78.5 Hyperlipidemia, unspecified; M19.90 Unspecified osteoarthritis, unspecified site; D64.9 Anemia, unspecified; E55.9 Vitamin D deficiency, unspecified; Z90.49 Acquired absence of other specified parts of digestive tract; Z88.8 Allergy status to other drugs, medicaments and biological substances; Z88.5 Allergy status to narcotic agent; Z88.1 Allergy status to other antibiotic agents; Z88.0 Allergy status to penicillin; Z79.82 Long term (current) use of aspirin; Z79.899 Other long term (current) drug therapy; Z79.890 Hormone replacement therapy; Z98.49 Cataract extraction status, unspecified eye; Z90.710 Acquired absence of both cervix and uterus; Z90.89 Acquired absence of other organs; Z11.59 Encounter for screening for other viral diseases
CPT/HCPCS: 01402; 36415; 64450; 73560-26-LT; 73560-LT; 80053; 81003; 84100; 85027; 97110-GP; 97116-GP; 97161-GP; 97165-GO; 97535-GO; 99222; 99231; A9270-GY; C1713; C1776; J0171; J0690; J0697; J1100; J1170; J1885; J2001; J2250; J2270; J2405; J2704; J2795; J3010; J3370; J3490; J7120; U0002

== ENCOUNTER → 2021-03-29 | Day surgery (SDC) | payer MEDICARE, BC ==
[~2021-03-29] MED LIST changes: -Dexamethasone 4 MG/ML 5 ML MDV ONE; -EPINEPHrine 1 MG/ML SDV ONE; -Ketorolac 15 MG/ML SDV ONE; -Lactated Ringers 1,000 ML IV SCH; +Meperidine 50 MG/ML Vial IVPUSH STA; -Midazolam 1 MG/ML 2 ML SDV ONE; -Ropivacaine 0.5% 5 MG/ML 30 ML SDV ONE; +Scopolamine 1.5 MG Transdermal Patch TRDERM PRN
[2021-03-29] MEDS: Lactated Ringers 1,000 ML IV SCH ×2 (06:33→09:41)
--- NOTE | 2021-03-29 06:44 | PCM.PREANE ---
Preanesthetic Assessment - Procedure Proposed Procedure: Right total hip Arthroplasty - Anesthesia/Transfusion/Family Hx Anesthesia History: Prior Anesthesia Reaction Family History of Anesthesia Reaction: No Transfusion History: No Prior Transfusion(s) - Review of Systems General: No Symptoms Pulmonary: No Symptoms Cardiovascular: Dyspnea on Exertion Gastrointestinal: Nausea (nerves) Neurological: No Symptoms Other: Reports: Easy Bleeding, Easy Bruising, Thyroid Problems (hypothyroid) - Physical Assessment NPO Status Date: 03/28/21 NPO Status Time: 00:00 Height: 1.7 m Weight: 81.4 kg ASA Class: 3 Mental Status: Alert & Oriented x3 Airway Class: Mallampati = 1 Dentition: Reports: Implants (front top) Thyro-Mental Finger Breadths: 3 Mouth Opening Finger Breadths: 3 ROM/Head Extension: Full Lungs: Clear to Auscultation, Normal Respiratory Effort Cardiovascular: Regular Rate, Regular Rhythm - Imaging/EKG Impressions: EKG SR rate 70 - Allergies Allergies/Adverse Reactions: Allergies Allergy/AdvReac Type Severity Reaction Status Date / Time amoxicillin [From Amoxil] Allergy Cannot Verified 03/28/21 15:38 Remember atorvastatin [From Lipitor] Allergy Cannot Verified 03/28/21 15:38 Remember bacitracin Allergy Cannot Verified 03/28/21 15:38 [From Neosporin Remember ([id number])] chlorhexidine Allergy Cannot Verified 03/28/21 15:38 Remember codeine Allergy Itching Verified 03/28/21 15:38 hydralazine Allergy Cannot Verified 03/28/21 15:38 Remember hydrocodone Allergy Cannot Verified 03/28/21 15:38 Remember neomycin Allergy Cannot Verified 03/28/21 15:38 [From Neosporin Remember ([id number])] Penicillins Allergy Itching Verified 03/28/21 15:38 polymyxin B Allergy Cannot Verified 03/28/21 15:38 [From Neosporin Remember ([id number])] rosuvastatin [From Crestor] Allergy Cannot Verified 03/28/21 15:38 Remember Tetracyclines Allergy Cannot Verified 03/28/21 15:38 Remember tramadol Allergy Itching Verified 03/28/21 15:38 zolpidem [From Ambien] Allergy Cannot Verified 03/28/21 15:38 Remember erythromycin base AdvReac Hypertensio Verified 03/28/21 15:38 [Erythromycin Base] n - Anesthesia Plan Pre-Op Medication Ordered: None - Acknowledgements Anesthesia Type Planned: Spinal Pt an Appropriate Candidate for the Planned Anesthesia: Yes Alternatives and Risks of Anesthesia Discussed w Pt/Guardian: Yes Pt/Guardian Understands and Agrees with Anesthesia Plan: Yes PreAnesthesia Questionnaire - Past Health History Medical/Surgical History: Denies Medical/Surgical History HEENT History: Reports: Allergic Rhinitis, Cataract, Impaired Vision, Sinusitis, Other (See Below) Other HEENT History: burning mouth syndrome, wears glasses Cardiovascular History: Reports: High Cholesterol, Hypertension, Other (See Below) Respiratory History: Reports: Bronchitis, Recurrent Other Respiratory History: Hx of pneumonia Gastrointestinal History: Reports: GERD, Irritable Bowel Syndrome Genitourinary History: Reports: UTI, Recurrent Other Genitourinary History: UTI x3 in last 2 months NIB FINISHER History: Reports: None Musculoskeletal History: Reports: Arthritis, Other (See Below) Other Musculoskeletal History: muscle pain, weakness, knee pain Neurological History: Reports: None, Other (See Below) Other Neuro History: transient cerbralischemia Psychiatric History: Reports: Anxiety, Other (See Below) Other Psychiatric History: anxiety, insomnia Endocrine/Metabolic History: Reports: Hypothyroidism, Vitamin D Deficiency Hematologic History: Reports: Anemia, Bleeding Disorder, Other (See Below) Immunologic History: Reports: None Oncologic (Cancer) History: Reports: None Dermatologic History: Reports: Seborrheic Dermatitis, Other (See Below) Other Dermatologic History: open wound of lower extremity, seborrheic keratosis, onchomycosis of toenail, skin lesions, skin tag - Infectious Disease History Infectious Disease History: Reports: Chicken Pox, Influenza, Measles - Past Surgical History Head Surgeries/Procedures: Reports: None HEENT Surgical History: Reports: Cataract Surgery, Tonsillectomy Cardiovascular Surgical History: Reports: Cardiac Ablation Other Cardiovascular Surgeries/Procedures: abnormal stress test Respiratory Surgical History: Reports: None GI Surgical History: Reports: Appendectomy, Colonoscopy, EGD Female Surgical History: Reports: Breast Biopsy, Hysterectomy Male Surgical History: Reports: None Endocrine Surgical History: Reports: None Neurological Surgical History: Reports: None Musculoskeletal Surgical History: Reports: Knee Replacement, Other (See Below) Other Musculoskeletal Surgeries/Procedures:: foot surgery Oncologic Surgical History: Reports: None - SUBSTANCE USE Tobacco Use Status *Q: Never Tobacco User Tobacco Use Within Last Twelve Months: No Second Hand Smoke Exposure: No Days Per Week of Alcohol Use: 1 Number of Drinks Per Day: 0 Total Drinks Per Week: 0 Recreational Drug Use History: No - HOME MEDS Home Medications: Home Meds Aspirin 81 mg PO DAILY 02/18/20 [History] Cholecalciferol (Vitamin D3) [Vitamin D3] 5,000 unit PO DAILY 02/18/20 [History] Ipratropium [Atrovent 0.06% Nasal [place]] 1 spray NASBOTH TID PRN 02/18/20 [History] L.acidoph,Paracasei, B.lactis [Probiotic] 1 cap PO DAILY 02/18/20 [History] Levothyroxine 75 mcg PO DAILY 02/18/20 [History] Pitavastatin Calcium [Livalo] 1 mg PO WEEKLY 02/18/20 [History] Ubidecarenone [Co Q-10] 100 mg PO DAILY 02/18/20 [History] hydroCHLOROthiazide [Hydrochlorothiazide] 25 mg PO DAILY 02/18/20 [History] Apixaban [Eliquis] 2.5 mg PO BID #60 tablet 02/22/20 [Rx] Cyclobenzaprine [Flexeril] 5 mg PO BID PRN #20 tablet 02/22/20 [Rx] Docusate Sodium [Colace] 100 mg PO BID cap 02/22/20 [Rx] Magnesium Hydroxide [Milk of Magnesia] 30 ml PO BID PRN cup 02/22/20 [Rx] Sennosides [Evac-U-Gen] 8.6 mg PO BEDTIME #30 tablet 02/22/20 [Rx] Sennosides [Senna] 8.6 mg PO BID PRN tablet 02/22/20 [Rx] Tapentadol [Nucynta] 50 - 100 mg PO Q6H PRN #60 tablet 02/22/20 [Rx] bisacodyL [Dulcolax] 5 mg PO DAILY PRN tablet 02/22/20 [Rx] - CURRENT (IN HOUSE) MEDS Current Meds: Current Medications Morphine Sulfate 8 mg/Epinephrine HCl 0.3 mg/Cefuroxime Sodium 750 mg/Ketorolac Tromethamine 30 mg/Sodium Chloride 7.9 ml 0 mg .XX ASDIRECTED PRN PRN Reason: Pain Lactated Ringer's (Ringers, Lactated) 1,000 mls @ 125 mls/hr IV ASDIRECTED WENDI Stop: 03/29/21 23:00 Lidocaine/Sodium Bicarbonate (Lidocaine 1%/Sod Bicarbonate In Ns 8.4% 1 Ml Syringe) 0.25 ml IDERM ONETIME PRN PRN Reason: Prior to IV Start Stop: 03/29/21 18:00 Scopolamine (Scopolamine 1.5 Mg Transdermal Patch) 1.5 mg TRDERM ONETIME PRN PRN Reason: PONV Stop: 03/29/21 16:00 Sodium Chloride (Sodium Chloride 0.9% 10 Ml Syringe) 10 ml FLUSH ASDIRECTED PRN PRN Reason: Keep Vein Open Stop: 03/29/21 18:00 Discontinued Medications Tranexamic Acid (Tranexamic Acid 1,000 Mg/10 Ml Amp) Confirm Administered Dose 1,000 mg .ROUTE .STK-MED ONE Stop: 03/29/21 06:28 Vancomycin HCl (Vancomycin 1 Gm Sdv) Confirm Administered Dose 1 gm .ROUTE .STK- MED ONE Stop: 03/29/21 06:28
[2021-03-29] MEDS: Morphine 8 MG, EPINEPHrine 0.3 MG, Cefuroxime 750 MG, Ketorolac 30 MG, Sodium Chloride ... PRN ×10 (08:14→08:30)
[2021-03-29] MEDS: Vancomycin 1 GM SDV ONE ×2 (08:15→08:30)
--- NOTE | 2021-03-29 09:09 | PCM.POSTAN ---
POST ANESTHESIA ASSESSMENT - MENTAL STATUS Mental Status: Alert, Oriented - VITAL SIGNS Vital Signs: Last Vital Signs Temp 36.7 C 03/29/21 06:20 Pulse 79 03/29/21 06:35 Resp 16 03/29/21 06:20 BP 157/89 H 03/29/21 06:50 Pulse Ox 98 03/29/21 06:20 - RESPIRATORY Respiratory Status: Respiratory Rate WNL, Airway Patent, O2 Saturation Stable - CARDIOVASCULAR CV Status: Pulse Rate WNL, Blood Pressure Stable - GASTROINTESTINAL GI Status: No Symptoms - PAIN Pain Score: 0 - POST OP HYDRATION Hydration Status: Adequate & Stable - OBSERVATIONS Free Text/Narrative:: no anesthesia complications noted
--- NOTE | 2021-03-29 12:35 | CR ---
Pelvis and right hip: AP view of the pelvis was obtained as well as crosstable lateral views of the right hip. Comparison: Prior CT right hip study of 12/14/20. Right hip prosthesis is noted. Components are aligned. Minimal soft tissue air is seen. Bony structures are osteopenic. No additional abnormality is seen. Impression: 1. Satisfactory postop radiographic appearance of right hip prosthesis. Diagnostic code #2
--- NOTE | 2021-03-29 13:02 | PCM48HPAN ---
Post Anesthesia Note - EVALUATION WITHIN 48HRS OF ANESTHETIC Vital Signs in Normal Range: Yes Patient Participated in Evaluation: Yes Respiratory Function Stable: Yes Airway Patent: Yes Cardiovascular Function Stable: Yes Hydration Status Stable: Yes Pain Control Satisfactory: Yes Nausea and Vomiting Control Satisfactory: Yes Mental Status Recovered: Yes Vital Signs: Last Vital Signs Temp 36.8 C 03/29/21 10:00 Pulse 70 03/29/21 10:00 Resp 17 03/29/21 10:00 BP 138/79 03/29/21 10:00 Pulse Ox 98 03/29/21 10:00 - COMMENTS/OBSERVATIONS Free Text/Narrative:: No anesthesia complications noted
[2021-03-29 15:03] VITALS: BP 111/49; PULSE 87
--- NOTE | 2021-04-09 12:24 | PCM.OPNOTE ---
- General Post-Op/Procedure Note Date of Surgery/Procedure: 03/29/21 Operative Procedure(s): right total hip arthroplasty Pre Op Diagnosis: right hip osteoarthrosis Post-Op Diagnosis: Same Anesthesia Technique: Local, MAC, Spinal Primary Surgeon: Jaison Gilmore Anesthesia Provider: Juan Marks Pad Making Machine Operator: Nasreen Madrid Pad Making Machine Operator: Rochelle Flores in mLs: 300 Complications: None Condition: Good Free Text/Narrative:: 54 4 28+0 MDM
--- NOTE | 2021-04-09 17:27 | OR ---
DATE OF OPERATION: 03/29/2021 SURGEON: Jaison Gilmore MD OPERATION PERFORMED: Right total hip arthroplasty. PREOPERATIVE DIAGNOSIS: Right hip osteoarthrosis. POSTOPERATIVE DIAGNOSIS: Right hip osteoarthrosis. ANESTHESIA: Local MAC with spinal. ANESTHESIA PROVIDER: Juan Marks CRNA ASSISTANTS: Nasreen Madrid PA-C and Rochelle Flores RN. ESTIMATED BLOOD LOSS: 300 mL. COMPLICATIONS: None. CONDITION: Stable. IMPLANTS: 1. [place] size 54 mm solid Tritanium II acetabular cup. 2. [place] size 4 Accolade II stem. 3. [place] size 28, +0/42 MDM components. DESCRIPTION OF PROCEDURE: The patient was identified in the preoperative holding area. Proper site was marked and identified by the surgeon. The patient was taken back to the operating theater where after adequate anesthesia, the patient was placed in a left lateral decubitus position. Axillary roll was placed. Pegs were placed and well padded. The patient's gluteal fold was parallel to the floor. Right hip was then sterilely prepped and draped in the usual sterile fashion. OR time- out was performed. The patient received 2 g of IV Ancef. Standard posterior incision was made. This was taken down to the IT band and gluteal fascia, which were incised along the incisional length. Charnley retractor was then placed. Takedown of the short external rotators was then done from the level of the piriformis down to the lesser trochanter. Hip was dislocated. Neck cut was completed and found to be adequate. Attention was turned to the acetabulum. Anterior and posterior acetabular retractors were placed and found to be in adequate position. Circumferential removal of the pulvinar as well as labrum was done at this time. Starting with a 50 reamer, I was able to ream medially and then a 54 reamer was utilized in roughly 20 to 25 degrees of anteversion and 45 degrees of abduction. It was found to have good bony bleeding bed. At this time, a 54 mm solid Tritanium II acetabular cup was impacted into place and the MDM liner was impacted into place. Attention was turned to the femur. Box chisel was used out laterally. Starter awl was placed down the canal. Starting with the 0 broach, I was able to broach up to a size 4, which was found to be rotationally and vertically stable. A 127-degree neck was then trialed with a 28, +0 MDM trial components. The patient had adequate episcopal of leg lengths and was stable throughout range of motion. Bone hook was used to dislocate the hip. Trial implants were removed. The size 4 Accolade II stem was impacted into place along with the 28, +0 MDM components, which were constructed on the back table. Hip was then relocated. #5 Ethibond suture was used for closure of the short external rotators and capsule. 1 L pulse lavage irrigation with Ancef was irrigated through the hip along with 400 mL of IrriSept irrigation. A periarticular injection was completed. A #2 barbed suture was used for closure of the IT band and gluteal fascia. 2-0 Vicryl was used subcutaneously, and Prineo was used for closure of the skin. The patient had a sterile soft dressing applied and sent to the PACU in stable condition. MMODAL /[id number]
== END | disposition home or self-care (01) ==
LOC: JD.SDS 06:06
PROVIDERS: ATTEND Orthopaedic Surgery
DX: M16.11 Unilateral primary osteoarthritis, right hip (principal); E78.5 Hyperlipidemia, unspecified; I10 Essential (primary) hypertension; E03.9 Hypothyroidism, unspecified; E55.9 Vitamin D deficiency, unspecified; I25.10 Atherosclerotic heart disease of native coronary artery without angina pectoris; K21.9 Gastro-esophageal reflux disease without esophagitis; Z88.8 Allergy status to other drugs, medicaments and biological substances; Z88.5 Allergy status to narcotic agent; Z88.0 Allergy status to penicillin; Z79.82 Long term (current) use of aspirin; Z79.899 Other long term (current) drug therapy; Z79.890 Hormone replacement therapy; Z98.890 Other specified postprocedural states
CPT/HCPCS: 27130; 36415; 73501; 86850; 86900; 86901; 97116; 97161; A9270; C1776; J0171; J0690; J0697; J1885; J2175; J2270; J2370; J2405; J2704; J3010; J3370; J7120; 01214; 99100

== ENCOUNTER 2024-03-14 17:33 | Emergency (ER) | payer MEDICARE, BC ==
[2024-03-14] MEDS: Metoclopramide 10 MG/2 ML SDV IVPUSH ONE (18:32)
[2024-03-14] MEDS: HYDROmorphone 0.5 MG/0.5 ML Syringe IVPUSH ONE (18:32)
[2024-03-14] MEDS: Lactated Ringers 1,000 ML IV SCH (18:33)
[2024-03-14 18:57] LABS: APPEARANCE,URINE CLEAR (Clear); BILIRUBIN,URINE NEGATIVE (Negative); COLOR,URINE YELLOW (Yellow); GLUCOSE,URINE NEGATIVE (Negative); KETONES,URINE 1+ (Negative); LEUKOCYTE ESTERASE,URINE NEGATIVE (Negative); NITRITE,URINE NEGATIVE (Negative); OCCULT BLOOD,URINE NEGATIVE (Negative); PROTEIN,URINE NEGATIVE (Negative); UROBILINOGEN,URINE 0.2 (0.2-1.0)
[2024-03-14 19:05] LABS: BASOPHILS ABSOLUTE AUTO 0.1 K/mm3 (0.0-0.2); BASOPHILS PERCENT AUTO 0.6 % (0.0-1.0); EOSINOPHILS PERCENT AUTO 0.1 % (0.0-6.0); HEMATOCRIT 44.7 % (37.0-47.0); HEMOGLOBIN 14.8 gm/dl (12.0-16.0); IMMATURE GRAN ABSOLUTE AUTO 0.03 K/mm3 (0.00-0.05); IMMATURE GRAN PERCENT AUTO 0.4 % (0.0-0.4); LYMPHOCYTES PERCENT AUTO 11.7 % (24.0-44.0); MEAN CORPUSCULAR HEMOGLOBIN 29.4 pg (28.0-32.0); MEAN CORPUSCULAR HGB CONC 33.1 g/dl (32.0-36.0); MEAN CORPUSCULAR VOLUME 88.7 fl (83.0-99.0); MONOCYTES ABSOLUTE AUTO 0.3 K/mm3 (0.0-0.8); MONOCYTES PERCENT AUTO 3.1 % (0.0-8.0); NEUTROPHILS PERCENT AUTO 84.1 % (41.0-71.0); PLATELET COUNT,PLT 211 K/mm3 (150-400); RED BLOOD CELL COUNT 5.04 M/mm3 (4.10-5.30); WHITE BLOOD CELL COUNT,WBC 8.28 K/mm3 (3.9-11.3)
[2024-03-14 19:29] LABS: LACTIC ACID 1.9 mmol/L (0.4-2.0)
[2024-03-14 19:36] LABS: A/G RATIO 1.4 (1-2); ALBUMIN 4.1 g/dl (3.4-5.0); ANION GAP 18.9 (5-15); BILIRUBIN TOTAL 0.6 mg/dL (0.2-1.0); BUN/CREATININE RATIO 13.9 (14-18); C-REACTIVE PROTEIN 0.08 mg/dL (<0.30); CALCIUM 9.7 mg/dL (8.5-10.1); CREATININE 1.8 mg/dL (0.55-1.02); EST CRCL DRUG DOSING (CG) 23.03 mL/min; MAGNESIUM 1.8 mg/dL (1.8-2.4); POTASSIUM,K 3.9 mEq/L (3.5-5.1); PROTEIN TOTAL,TP 7.1 g/dl (6.4-8.2)
[2024-03-14] MEDS: Diatrizoate Meglumine/Diatrizoate Sodium 37% 120 ML Bottle PO ONE (20:31)
[2024-03-14] MEDS: Iopamidol 612 MG/ML 100 ML Bottle IVPUSH ONE (21:12)
[2024-03-14] MEDS: Sodium Chloride 0.9% 10 ML Syringe FLUSH ONE (21:12)
[2024-03-14] MEDS: Levofloxacin 250 MG Tab PO ONE (23:57)
[2024-03-14] MEDS: Tamsulosin 0.4 MG Cap.ER PO ONE (23:57)
[2024-03-14] MEDS: Zolpidem 5 MG Tab PO ONE (23:57)
[2024-03-15 07:29] VITALS: BP 121/83; PULSE 84
[2024-03-15] MEDS: Levofloxacin 250 MG Tab PO ONE (07:35)
[2024-03-15] MEDS: Tamsulosin 0.4 MG Cap.ER PO ONE (07:35)
== END 2024-03-15 07:35 | disposition home or self-care (01) ==
LOC: JD.ED 17:33
DX: N13.2 Hydronephrosis with renal and ureteral calculous obstruction (principal); I10 Essential (primary) hypertension; E78.00 Pure hypercholesterolemia, unspecified; R06.02 Shortness of breath; E03.9 Hypothyroidism, unspecified; Z88.0 Allergy status to penicillin; Z88.1 Allergy status to other antibiotic agents; Z88.8 Allergy status to other drugs, medicaments and biological substances; Z79.82 Long term (current) use of aspirin; Z79.890 Hormone replacement therapy; Z79.899 Other long term (current) drug therapy; Z90.49 Acquired absence of other specified parts of digestive tract; Z90.710 Acquired absence of both cervix and uterus
CPT/HCPCS: 36415; 74018; 74177; 80053; 81003; 82150; 83605; 83690; 83735; 83880; 84484; 85025; 86140; 93005; 96361; 96374; 96375; 99285; A9270; C1758; J1170; J2765; J3490; J7120; Q9963; Q9967; 93010; 99284